=== PATIENT | female | born 1975 | race Caucasian/White ===

== ENCOUNTER 2021-05-12 06:20 | Inpatient (IN) ==
[2021-05-12] MEDS ORDERED: BUDESONIDE 0.5 MG/2 ML NEB RESP TX STA (07:01)
[2021-05-12] MEDS ORDERED: ALBUTEROL 2.5 MG/3 ML NEB RESP TX STA (07:01)
[2021-05-12 07:57] LABS: ABG HCO3 26.9 MMOL/L (20-26); ABG Oxygen Saturation 89.1 % (95-100); ABG PCO2 35.8 MM HG (35-48); ABG PH 7.475 (7.35-7.45); ABG PO2 54.8 MM HG (80-95); ABG TCO2 23.1 MMOL/L (23-27)
[2021-05-12 08:11] LABS: Albumin 2.8 G/DL (3.4-5.0); Bilirubin,Total 0.5 MG/DL (0.20-1.00); Osmolality,Calculated 274.4 MOS/KG (273-304); Potassium 3.6 MMOL/L (3.5-5.1); Total Protein 6.8 G/DL (6.4-8.2)
[2021-05-12 08:19] LABS: Hemoglobin 12.4 GM/DL (12.0-16.0); Immature Granulocytes % 0.7 %; Immature Granulocytes Absolute 0.02 #; Lymphocytes # 0.6 10*3/uL (1.4-4.0); Lymphocytes % 20.3 % (21.3-54.2); Mean Corpuscular HGB Conc 33.5 GM/DL (32-36); Mean Corpuscular Volume 81.1 FL (87-102); Mean Platelet Volume 10.6 FL (9.6-12.0); Monocytes % 5.8 % (1.7-12.7); Neutrophils % 73.2 % (38.7-73.9); Platelet Count 115 T/CUMM (130-400); Red Blood Count 4.56 MC/CUMM (3.8-5.5); Red Cell Distribution Width 13.7 % (9.3-17.3); White Blood Count 2.9 T/CUMM (4-12)
[2021-05-12 08:48] LABS: Anisocytosis Slight; Band Neutrophils 24 % (0-10); Lymphocytes 21 % (20-55); Platelet Estimate Adequate; Segmented Neutrophils 49 % (50-85); Total Cells Counted 100
[2021-05-12] MEDS ORDERED: DEXTROSE 50% 25 GM/50 ML VIAL IV PRN (10:39)
[2021-05-12] MEDS ORDERED: GLUCAGON 1 MG VIAL IM PRN ×2 (10:39)
[2021-05-12] MEDS ORDERED: ONDANSETRON 4 MG/2 ML VIAL IV PRN (10:39)
[2021-05-12] MEDS ORDERED: AZITHROMYCIN INJ 500 MG in SODIUM CHLORIDE 0.9% 250 ML IV ONE (10:50)
[2021-05-12] MEDS: ENOXAPARIN 40 MG/0.4 ML SYRINGE SUBCUT SCH (12:10)
[2021-05-12] MEDS: SODIUM CHLORIDE 0.9% 1,000 ML IV SCH ×2 (12:11→22:11)
[2021-05-12 12:33] LABS: Ferritin 658.4 ng/mL (8-252)
[2021-05-12] MEDS ORDERED: REMDESIVIR 200 MG in SODIUM CHLORIDE 0.9% 210 ML IV ONE (14:00)
[2021-05-12] MEDS: INSULIN REGULAR 100 UNIT/ML SUBCUT SCH ×3 (15:21→21:10)
[2021-05-12] MEDS: ASCORBIC ACID 500 MG TABLET PO SCH (21:00)
[2021-05-12] MEDS: FAMOTIDINE 20 MG TABLET PO SCH (21:00)
[2021-05-12] MEDS: guaiFENesin/CODEINE 5 ML LIQUID PO PRN (23:05)
[2021-05-13 05:22] LABS: Basophils % 0.3 % (0.0-0.8); Hematocrit 35.7 VOL% (35.7-47.0); Hemoglobin 11.8 GM/DL (12.0-16.0); Immature Granulocytes % 0.7 %; Immature Granulocytes Absolute 0.02 #; Lymphocytes # 0.8 10*3/uL (1.4-4.0); Mean Corpuscular HGB Conc 33.1 GM/DL (32-36); Mean Corpuscular Volume 82.8 FL (87-102); Mean Platelet Volume 9.4 FL (9.6-12.0); Monocytes % 5.9 % (1.7-12.7); Neutrophils % 66.1 % (38.7-73.9); Platelet Count 116 T/CUMM (130-400); Red Blood Count 4.31 MC/CUMM (3.8-5.5); Red Cell Distribution Width 13.8 % (9.3-17.3); White Blood Count 3.1 T/CUMM (4-12)
[2021-05-13 05:32] LABS: INR 0.9; PT Patient Result 10.3 SECS (10.5-12.0)
[2021-05-13 05:42] LABS: Hypochromasia Slight; Microcytosis Slight
[2021-05-13 05:52] LABS: Ferritin 585.1 ng/mL (8-252)
[2021-05-13 06:07] LABS: Albumin 2.3 G/DL (3.4-5.0); Bilirubin,Total 1.2 MG/DL (0.20-1.00); Calcium 7.4 MG/DL (8.5-10.1); Osmolality,Calculated 280.5 MOS/KG (273-304); Potassium 3.3 MMOL/L (3.5-5.1); Risk Ratio 2.56; Thyroid Stimulating Hormone 2.57 uIU/ml (0.358-3.74); Total Protein 5.9 G/DL (6.4-8.2); VLDL Cholesterol 18.8 MG/DL
[2021-05-13] MEDS ORDERED: POTASSIUM CHLORIDE 20 MEQ TABLET PO ONE (07:53)
[2021-05-13] MEDS ORDERED: PANTOPRAZOLE 40 MG TABLET PO SCH (09:00)
[2021-05-13] MEDS: REMDESIVIR 100 MG in SODIUM CHLORIDE 0.9% 100 ML IV SCH (09:08)
[2021-05-13] MEDS: DEXAMETHASONE 4 MG/1 ML VIAL IV SCH (09:13)
[2021-05-13] MEDS: CETIRIZINE 10 MG TABLET PO SCH (09:14)
[2021-05-13] MEDS: CHOLECALCIFEROL 1,000 UNIT TABLET PO SCH (09:14)
[2021-05-13] MEDS: ZINC GLUCONATE 50 MG TABLET PO SCH (09:14)
[2021-05-13] MEDS: ASCORBIC ACID 500 MG TABLET PO SCH ×2 (09:14→20:43)
[2021-05-13] MEDS: FAMOTIDINE 20 MG TABLET PO SCH ×2 (09:14→20:42)
[2021-05-13] MEDS: AZITHROMYCIN 250 MG TABLET PO SCH (09:14)
[2021-05-13] MEDS: INSULIN REGULAR 100 UNIT/ML SUBCUT SCH ×4 (09:22→20:43)
[2021-05-13] MEDS: ENOXAPARIN 40 MG/0.4 ML SYRINGE SUBCUT SCH (14:41)
[2021-05-13] MEDS: SODIUM CHLORIDE 0.9% 1,000 ML IV SCH ×2 (14:44→18:10)
[2021-05-13] MEDS: guaiFENesin/CODEINE 5 ML LIQUID PO PRN (20:43)
[2021-05-13] MEDS: ALBUTEROL INHALER 18 GM INH SCH (23:00)
[2021-05-14] MEDS: ALBUTEROL INHALER 18 GM INH SCH ×8 (03:00→23:00)
[2021-05-14] MEDS: guaiFENesin/CODEINE 5 ML LIQUID PO PRN (03:16)
[2021-05-14] MEDS: SODIUM CHLORIDE 0.9% 1,000 ML IV SCH ×2 (05:51→14:28)
[2021-05-14 07:44] LABS: Calcium 7.9 MG/DL (8.5-10.1); Osmolality,Calculated 285.3 MOS/KG (273-304)
[2021-05-14] MEDS: INSULIN REGULAR 100 UNIT/ML SUBCUT SCH ×4 (08:37→21:18)
[2021-05-14] MEDS: DEXAMETHASONE 4 MG/1 ML VIAL IV SCH (08:37)
[2021-05-14] MEDS: ASCORBIC ACID 500 MG TABLET PO SCH ×2 (08:38→21:18)
[2021-05-14] MEDS: ZINC GLUCONATE 50 MG TABLET PO SCH (08:38)
[2021-05-14] MEDS: CHOLECALCIFEROL 1,000 UNIT TABLET PO SCH (08:38)
[2021-05-14] MEDS: AZITHROMYCIN 250 MG TABLET PO SCH (08:38)
[2021-05-14] MEDS: CETIRIZINE 10 MG TABLET PO SCH (08:38)
[2021-05-14] MEDS: FAMOTIDINE 20 MG TABLET PO SCH ×2 (08:38→21:18)
[2021-05-14 09:48] LABS: Hematocrit 35.2 VOL% (35.7-47.0); Hemoglobin 11.4 GM/DL (12.0-16.0); Immature Granulocytes % 0.6 %; Immature Granulocytes Absolute 0.03 #; Lymphocytes # 0.6 10*3/uL (1.4-4.0); Lymphocytes % 12.7 % (21.3-54.2); Mean Corpuscular HGB Conc 32.4 GM/DL (32-36); Mean Corpuscular Volume 82.8 FL (87-102); Mean Platelet Volume 9.7 FL (9.6-12.0); Monocytes % 6.3 % (1.7-12.7); Neutrophils % 80.4 % (38.7-73.9); Platelet Count 141 T/CUMM (130-400); Red Blood Count 4.25 MC/CUMM (3.8-5.5); Red Cell Distribution Width 13.9 % (9.3-17.3)
[2021-05-14 10:12] LABS: Albumin 2.3 G/DL (3.4-5.0); Bilirubin,Total 0.4 MG/DL (0.20-1.00); Calcium 7.9 MG/DL (8.5-10.1); Osmolality,Calculated 290.1 MOS/KG (273-304); Potassium 3.7 MMOL/L (3.5-5.1); Total Protein 5.9 G/DL (6.4-8.2)
[2021-05-14] MEDS: REMDESIVIR 100 MG in SODIUM CHLORIDE 0.9% 100 ML IV SCH (10:29)
[2021-05-14] MEDS ORDERED: LORazepam 2 MG/1 ML VIAL IV ONE (15:14)
[2021-05-14] MEDS ORDERED: LORazepam 2 MG/1 ML VIAL ONE (15:24)
[2021-05-14] MEDS: APIXABAN 5 MG TABLET PO SCH (21:18)
[2021-05-14] MEDS: MELATONIN 3 MG TABLET PO PRN (21:18)
[2021-05-15] MEDS: guaiFENesin/CODEINE 5 ML LIQUID PO PRN (00:48)
[2021-05-15] MEDS: SODIUM CHLORIDE 0.9% 1,000 ML IV SCH ×2 (01:28→12:32)
[2021-05-15] MEDS: ALBUTEROL INHALER 18 GM INH SCH ×7 (03:00→21:01)
[2021-05-15 06:16] LABS: Hematocrit 35.4 VOL% (35.7-47.0); Hemoglobin 11.4 GM/DL (12.0-16.0); Immature Granulocytes % 1.1 %; Immature Granulocytes Absolute 0.07 #; Lymphocytes # 0.5 10*3/uL (1.4-4.0); Lymphocytes % 7.8 % (21.3-54.2); Mean Corpuscular HGB Conc 32.2 GM/DL (32-36); Mean Corpuscular Volume 83.7 FL (87-102); Mean Platelet Volume 9.6 FL (9.6-12.0); Monocytes % 5.1 % (1.7-12.7); Platelet Count 156 T/CUMM (130-400); Red Blood Count 4.23 MC/CUMM (3.8-5.5); Red Cell Distribution Width 13.9 % (9.3-17.3); White Blood Count 6.6 T/CUMM (4-12)
[2021-05-15 06:31] LABS: Albumin 2.2 G/DL (3.4-5.0); Bilirubin,Total 0.6 MG/DL (0.20-1.00); Osmolality,Calculated 287.1 MOS/KG (273-304); Potassium 3.5 MMOL/L (3.5-5.1); Total Protein 5.9 G/DL (6.4-8.2)
[2021-05-15 06:36] LABS: Potassium 3.7 MMOL/L (3.5-5.1)
[2021-05-15 06:44] LABS: Anisocytosis 2+; Platelet Estimate Normal
[2021-05-15] MEDS ORDERED: LORazepam 2 MG/1 ML VIAL IM PRN (07:40)
[2021-05-15] MEDS ORDERED: LORazepam 2 MG/1 ML VIAL ONE (08:00)
[2021-05-15] MEDS: DEXAMETHASONE 4 MG/1 ML VIAL IV SCH (08:08)
[2021-05-15] MEDS: CHOLECALCIFEROL 1,000 UNIT TABLET PO SCH (08:10)
[2021-05-15] MEDS: ACETAMINOPHEN 325 MG TABLET PO PRN (08:10)
[2021-05-15] MEDS: ZINC GLUCONATE 50 MG TABLET PO SCH (08:10)
[2021-05-15] MEDS: AZITHROMYCIN 250 MG TABLET PO SCH (08:11)
[2021-05-15] MEDS: ASCORBIC ACID 500 MG TABLET PO SCH ×2 (08:11→20:35)
[2021-05-15] MEDS: FAMOTIDINE 20 MG TABLET PO SCH ×2 (08:12→20:34)
[2021-05-15] MEDS: INSULIN REGULAR 100 UNIT/ML SUBCUT SCH ×4 (08:12→20:34)
[2021-05-15] MEDS: APIXABAN 5 MG TABLET PO SCH (08:12)
[2021-05-15] MEDS ORDERED: ALPRAZolam 0.5 MG TABLET PO PRN (10:11)
[2021-05-15] MEDS ORDERED: ALPRAZolam 0.5 MG TABLET PO ONE (10:11)
[2021-05-15] MEDS: REMDESIVIR 100 MG in SODIUM CHLORIDE 0.9% 100 ML IV SCH (10:34)
[2021-05-15] MEDS: CETIRIZINE 10 MG TABLET PO SCH (10:34)
[2021-05-15 10:38] LABS: ABG Base Excess -1.4 MMOL/L (-2.5-2.5); ABG HCO3 24.4 MMOL/L (20-26); ABG Oxygen Saturation 90.7 % (95-100); ABG PH 7.352 (7.35-7.45); ABG PO2 63.2 MM HG (80-95); ABG TCO2 25.8 MMOL/L (23-27)
[2021-05-15] MEDS ORDERED: DEXAMETHASONE 4 MG/1 ML VIAL IV ONE (11:00)
[2021-05-15] MEDS ORDERED: MORPHINE 2 MG/1 ML SYRINGE IV ONE ×2 (13:36→15:22)
[2021-05-15] MEDS ORDERED: FUROSEMIDE 40 MG/4 ML VIAL IV ONE (13:58)
[2021-05-15] MEDS: cefTRIAXone 1,000 MG in SODIUM CHLORIDE 0.9% 100 ML IV SCH (14:20)
[2021-05-15 14:23] LABS: ABG Base Excess -1.9 MMOL/L (-2.5-2.5); ABG HCO3 22.1 MMOL/L (20-26); ABG Oxygen Saturation 64.7 % (95-100); ABG PCO2 58.9 MM HG (35-48); ABG PH 7.263 (7.35-7.45); ABG TCO2 23.9 MMOL/L (23-27)
[2021-05-15] MEDS ORDERED: ETOMIDATE 20 MG/10 ML VIAL IV ONE ×2 (14:24→14:30)
[2021-05-15] MEDS ORDERED: SUCCINYLCHOLINE 200 MG/10 ML VIAL ONE (14:25)
[2021-05-15] MEDS ORDERED: SUCCINYLCHOLINE 200 MG/10 ML VIAL IV ONE (14:30)
[2021-05-15] MEDS ORDERED: fentaNYL INJ 1,250 MCG in SODIUM CHLORIDE 0.9% 225 ML IV PRN (14:59)
[2021-05-15] MEDS ORDERED: ROCURONIUM 100 MG/10 ML VIAL IV ONE (15:15)
[2021-05-15] MEDS ORDERED: LORazepam 2 MG/1 ML VIAL IV ONE (15:22)
[2021-05-15 15:41] LABS: ABG Base Excess -1.6 MMOL/L (-2.5-2.5); ABG HCO3 22.7 MMOL/L (20-26); ABG Oxygen Saturation 79.2 % (95-100); ABG PCO2 60.7 MM HG (35-48); ABG PH 7.255 (7.35-7.45); ABG PO2 52.6 MM HG (80-95); ABG TCO2 24.5 MMOL/L (23-27)
[2021-05-15] MEDS: ENOXAPARIN 150 MG/ML SYRINGE SUBCUT SCH (15:46)
[2021-05-15 15:52] LABS: Hematocrit 36.5 VOL% (35.7-47.0); Hemoglobin 11.5 GM/DL (12.0-16.0); Immature Granulocytes % 0.9 %; Immature Granulocytes Absolute 0.09 #; Lymphocytes # 0.3 10*3/uL (1.4-4.0); Lymphocytes % 3.2 % (21.3-54.2); Mean Corpuscular HGB Conc 31.5 GM/DL (32-36); Mean Corpuscular Volume 86.1 FL (87-102); Mean Platelet Volume 10.5 FL (9.6-12.0); Monocytes % 3.1 % (1.7-12.7); Neutrophils % 92.8 % (38.7-73.9); Platelet Count 150 T/CUMM (130-400); Red Blood Count 4.24 MC/CUMM (3.8-5.5); Red Cell Distribution Width 14.3 % (9.3-17.3); White Blood Count 9.9 T/CUMM (4-12)
[2021-05-15 16:13] LABS: Albumin 2.2 G/DL (3.4-5.0); Bilirubin,Total 0.6 MG/DL (0.20-1.00); Calcium 7.6 MG/DL (8.5-10.1); Osmolality,Calculated 295.8 MOS/KG (273-304); Potassium 4.4 MMOL/L (3.5-5.1); Total Protein 5.6 G/DL (6.4-8.2)
[2021-05-15] MEDS ORDERED: SODIUM CHLORIDE 0.9% 500 ML IV ONE ×2 (16:27→22:31)
[2021-05-15 16:31] LABS: Ferritin 340.1 ng/mL (8-252)
[2021-05-15 16:45] LABS: Hypochromasia 1+; Microcytosis 1+; Segmented Neutrophils 100 % (50-85); Total Cells Counted 100
[2021-05-15 16:46] LABS: Platelet Estimate Adequate
[2021-05-15] MEDS: NOREPINEPHRINE 8 MG in SODIUM CHLORIDE 0.9% 242 ML IV PRN (18:00)
[2021-05-15] MEDS: fentaNYL INJ 5,000 MCG in SODIUM CHLORIDE 0.9% 150 ML IV PRN (18:07)
[2021-05-15] MEDS: ROCURONIUM 1,000 MG in SODIUM CHLORIDE 0.9% 175 ML IV PRN (18:07)
[2021-05-15] MEDS ORDERED: SODIUM CHLORIDE 0.9% 500 ML IV SCH (23:45)
[2021-05-16] MEDS: ALBUTEROL INHALER 18 GM INH SCH ×9 (00:03→22:05)
[2021-05-16] MEDS: INSULIN REGULAR 100 UNIT/ML SUBCUT SCH ×6 (00:38→20:18)
[2021-05-16] MEDS: MIDAZOLAM 100 MG in SODIUM CHLORIDE 0.9% 80 ML IV PRN (02:24)
[2021-05-16 04:20] LABS: Basophils % 0.2 % (0.0-0.8); Hematocrit 32.8 VOL% (35.7-47.0); Hemoglobin 10.3 GM/DL (12.0-16.0); Immature Granulocytes % 0.6 %; Immature Granulocytes Absolute 0.03 #; Lymphocytes # 0.5 10*3/uL (1.4-4.0); Lymphocytes % 10.5 % (21.3-54.2); Mean Corpuscular HGB Conc 31.4 GM/DL (32-36); Mean Corpuscular Volume 85.2 FL (87-102); Mean Platelet Volume 10.5 FL (9.6-12.0); Monocytes % 5.7 % (1.7-12.7); Platelet Count 153 T/CUMM (130-400); Red Blood Count 3.85 MC/CUMM (3.8-5.5); Red Cell Distribution Width 14.5 % (9.3-17.3); White Blood Count 5.1 T/CUMM (4-12)
[2021-05-16 04:24] LABS: ABG HCO3 23.8 MMOL/L (20-26); ABG Oxygen Saturation 98.5 % (95-100); ABG PH 7.342 (7.35-7.45); ABG PO2 179.7 MM HG (80-95); ABG TCO2 25.2 MMOL/L (23-27); Allen Test Positive; Pt O2 Delivery Device Ventilator
[2021-05-16 05:02] LABS: Albumin 1.9 G/DL (3.4-5.0); Bilirubin,Total 0.4 MG/DL (0.20-1.00); Calcium 7.6 MG/DL (8.5-10.1); Osmolality,Calculated 299.8 MOS/KG (273-304); Potassium 4.5 MMOL/L (3.5-5.1); Total Protein 5.7 G/DL (6.4-8.2)
[2021-05-16 05:33] LABS: Ferritin 392.9 ng/mL (8-252)
[2021-05-16] MEDS: fentaNYL INJ 5,000 MCG in SODIUM CHLORIDE 0.9% 150 ML IV PRN ×2 (07:01→18:52)
[2021-05-16] MEDS: ROCURONIUM 1,000 MG in SODIUM CHLORIDE 0.9% 175 ML IV PRN ×2 (07:03→18:52)
[2021-05-16] MEDS: CHOLECALCIFEROL 1,000 UNIT TABLET PO SCH (08:03)
[2021-05-16] MEDS: ZINC GLUCONATE 50 MG TABLET PO SCH (08:04)
[2021-05-16] MEDS: ASCORBIC ACID 500 MG TABLET PO SCH ×2 (08:04→20:19)
[2021-05-16] MEDS: FAMOTIDINE 20 MG TABLET PO SCH ×2 (08:04→20:18)
[2021-05-16] MEDS: AZITHROMYCIN 250 MG TABLET PO SCH (08:05)
[2021-05-16] MEDS: CETIRIZINE 10 MG TABLET PO SCH (08:05)
[2021-05-16] MEDS ORDERED: DEXAMETHASONE INJ 10 MG in SODIUM CHLORIDE 0.9% 50 ML IV SCH (09:00)
[2021-05-16] MEDS: REMDESIVIR 100 MG in SODIUM CHLORIDE 0.9% 100 ML IV SCH (09:43)
[2021-05-16] MEDS ORDERED: FUROSEMIDE 20 MG/2 ML VIAL IV ONE (09:55)
[2021-05-16] MEDS ORDERED: methylPREDNISolone SOD SUC 40 MG/1 ML VIAL IV SCH (10:00)
[2021-05-16 10:19] LABS: % Iron Saturation 10.9 % (18-50)
[2021-05-16] MEDS: INSULIN GLARGINE 100 UNIT/ML SUBCUT SCH ×2 (11:14→20:18)
[2021-05-16] MEDS: cefTRIAXone 1,000 MG in SODIUM CHLORIDE 0.9% 100 ML IV SCH (14:55)
[2021-05-16] MEDS: ENOXAPARIN 150 MG/ML SYRINGE SUBCUT SCH (15:01)
[2021-05-16] MEDS: ACETAMINOPHEN 325 MG TABLET PO PRN (17:28)
[2021-05-16] MEDS: methylPREDNISolone SOD SUC 40 MG/1 ML VIAL IV SCH ×2 (17:30→21:55)
[2021-05-16] MEDS: ALBUTEROL/IPRATROPIUM 3 ML NEB RESP TX SCH (17:32)
[2021-05-16] MEDS: NOREPINEPHRINE 8 MG in SODIUM CHLORIDE 0.9% 242 ML IV PRN (18:51)
[2021-05-16] MEDS: MONTELUKAST 10 MG TABLET PO SCH (20:18)
[2021-05-17] MEDS: INSULIN REGULAR 100 UNIT/ML SUBCUT SCH ×6 (00:15→20:58)
[2021-05-17] MEDS: ACETAMINOPHEN 325 MG TABLET PO PRN ×3 (00:30→18:19)
[2021-05-17 03:14] LABS: ABG Base Excess 1.4 MMOL/L (-2.5-2.5); ABG PCO2 53.5 MM HG (35-48); ABG PH 7.336 (7.35-7.45); ABG TCO2 29.6 MMOL/L (23-27)
[2021-05-17] MEDS: MIDAZOLAM 100 MG in SODIUM CHLORIDE 0.9% 80 ML IV PRN (03:14)
[2021-05-17] MEDS: methylPREDNISolone SOD SUC 40 MG/1 ML VIAL IV SCH ×4 (04:15→22:01)
[2021-05-17] MEDS: ALBUTEROL INHALER 18 GM INH SCH ×6 (04:17→23:45)
[2021-05-17] MEDS: fentaNYL INJ 5,000 MCG in SODIUM CHLORIDE 0.9% 150 ML IV PRN (05:45)
[2021-05-17 05:57] LABS: Basophils % 0.2 % (0.0-0.8); Hematocrit 34.3 VOL% (35.7-47.0); Hemoglobin 10.8 GM/DL (12.0-16.0); Immature Granulocytes % 0.8 %; Immature Granulocytes Absolute 0.05 #; Lymphocytes # 0.6 10*3/uL (1.4-4.0); Lymphocytes % 9.2 % (21.3-54.2); Mean Corpuscular HGB Conc 31.5 GM/DL (32-36); Mean Corpuscular Volume 87.5 FL (87-102); Mean Platelet Volume 10.6 FL (9.6-12.0); Monocytes % 4.7 % (1.7-12.7); Neutrophils % 85.1 % (38.7-73.9); Platelet Count 213 T/CUMM (130-400); Red Blood Count 3.92 MC/CUMM (3.8-5.5); Red Cell Distribution Width 14.5 % (9.3-17.3)
[2021-05-17 06:33] LABS: Albumin 1.9 G/DL (3.4-5.0); Bilirubin,Total 0.9 MG/DL (0.20-1.00); Calcium 8.3 MG/DL (8.5-10.1); Osmolality,Calculated 304.7 MOS/KG (273-304); Potassium 4.8 MMOL/L (3.5-5.1); Total Protein 5.8 G/DL (6.4-8.2)
[2021-05-17 06:38] LABS: Albumin 1.9 G/DL (3.4-5.0); Bilirubin,Direct 0.37 MG/DL (0.0-0.20); Bilirubin,Indirect 0.5 MG/DL (0.0-1.0); Bilirubin,Total 0.9 MG/DL (0.20-1.00); Calcium 8.3 MG/DL (8.5-10.1); Ferritin 424.4 ng/mL (8-252); Free T4 (Free Thyroxine) 1.11 NG/DL (0.76-1.46); Osmolality,Calculated 306.7 MOS/KG (273-304); Potassium 4.7 MMOL/L (3.5-5.1); Thyroid Stimulating Hormone 0.688 uIU/ml (0.358-3.74); Total Protein 5.8 G/DL (6.4-8.2)
[2021-05-17] MEDS: ROCURONIUM 1,000 MG in SODIUM CHLORIDE 0.9% 175 ML IV PRN ×2 (07:15→19:05)
[2021-05-17 08:31] LABS: Anisocytosis 1+; Platelet Estimate Normal
[2021-05-17] MEDS: CHOLECALCIFEROL 1,000 UNIT TABLET PO SCH (09:39)
[2021-05-17] MEDS: FAMOTIDINE 20 MG TABLET PO SCH ×2 (09:40→20:58)
[2021-05-17] MEDS: ZINC GLUCONATE 50 MG TABLET PO SCH (09:40)
[2021-05-17] MEDS: ASCORBIC ACID 500 MG TABLET PO SCH ×2 (09:40→20:58)
[2021-05-17] MEDS: INSULIN GLARGINE 100 UNIT/ML SUBCUT SCH ×2 (09:42→20:59)
[2021-05-17] MEDS ORDERED: INSULIN GLARGINE 100 UNIT/ML SUBCUT ONE (10:51)
[2021-05-17] MEDS: AZITHROMYCIN INJ 500 MG in SODIUM CHLORIDE 0.9% 250 ML IV SCH (11:47)
[2021-05-17 14:28] LABS: Bacteria,Urine Moderate /HPF (Few); Bilirubin,Urine Negative (Negative); Blood, Urine Negative (Negative); Glucose,Urine (UA) 150 mg/dL (Negative); Ketones,Urine 20 mg/dL (Negative); Mucus,Urine Few /LPF (Occasional); Nitrite,Urine Negative (Negative); Protein,Urine 100 MG/DL; RBC,Urine 195 /HPF (0-4); Squamous Epithelial Cell,Urine Occasional /HPF (0-10); Urine Appearance CLOUDY (Clear); Urine Color Amber (Yellow); Urine Specific Gravity 1.028 (1.001-1.035)
[2021-05-17] MEDS: cefTRIAXone 1,000 MG in SODIUM CHLORIDE 0.9% 100 ML IV SCH (14:43)
[2021-05-17] MEDS: ENOXAPARIN 150 MG/ML SYRINGE SUBCUT SCH (14:43)
[2021-05-17] MEDS: VANCOMYCIN INJ 2,000 MG in SODIUM CHLORIDE 0.9% 500 ML IV SCH (16:16)
[2021-05-17] MEDS: MONTELUKAST 10 MG TABLET PO SCH (20:58)
[2021-05-18] MEDS: INSULIN REGULAR 100 UNIT/ML SUBCUT SCH ×6 (00:33→20:48)
[2021-05-18] MEDS: MIDAZOLAM 100 MG in SODIUM CHLORIDE 0.9% 80 ML IV PRN ×2 (01:05→23:31)
[2021-05-18] MEDS: fentaNYL INJ 5,000 MCG in SODIUM CHLORIDE 0.9% 150 ML IV PRN ×2 (02:50→13:00)
[2021-05-18] MEDS: ALBUTEROL INHALER 18 GM INH SCH ×5 (03:15→19:00)
[2021-05-18 04:09] LABS: ABG Base Excess 3.6 MMOL/L (-2.5-2.5); ABG HCO3 27.5 MMOL/L (20-26); ABG Oxygen Saturation 92.2 % (95-100); ABG PCO2 51.6 MM HG (35-48); ABG PH 7.372 (7.35-7.45); ABG TCO2 26.9 MMOL/L (23-27)
[2021-05-18] MEDS: methylPREDNISolone SOD SUC 40 MG/1 ML VIAL IV SCH ×3 (04:25→20:48)
[2021-05-18] MEDS: VANCOMYCIN INJ 2,000 MG in SODIUM CHLORIDE 0.9% 500 ML IV SCH ×2 (04:26→17:00)
[2021-05-18] MEDS: ACETAMINOPHEN 325 MG TABLET PO PRN ×2 (04:40→20:37)
[2021-05-18 05:01] LABS: Hemoglobin 10.5 GM/DL (12.0-16.0); Immature Granulocytes % 0.9 %; Immature Granulocytes Absolute 0.05 #; Lymphocytes # 0.4 10*3/uL (1.4-4.0); Lymphocytes % 7.3 % (21.3-54.2); Mean Corpuscular HGB Conc 30.9 GM/DL (32-36); Mean Corpuscular Volume 87.2 FL (87-102); Mean Platelet Volume 10.4 FL (9.6-12.0); Neutrophils % 83.8 % (38.7-73.9); Platelet Count 235 T/CUMM (130-400); Red Cell Distribution Width 14.3 % (9.3-17.3); White Blood Count 5.4 T/CUMM (4-12)
[2021-05-18 05:23] LABS: Hypochromasia 1+; Microcytosis 1+; Platelet Estimate Adequate
[2021-05-18 05:40] LABS: Albumin 1.9 G/DL (3.4-5.0); Bilirubin,Direct 0.42 MG/DL (0.0-0.20); Bilirubin,Indirect 0.3 MG/DL (0.0-1.0); Bilirubin,Total 0.7 MG/DL (0.20-1.00); Calcium 8.2 MG/DL (8.5-10.1); Ferritin 378.8 ng/mL (8-252); Osmolality,Calculated 311.4 MOS/KG (273-304); Potassium 4.9 MMOL/L (3.5-5.1); Total Protein 5.7 G/DL (6.4-8.2)
[2021-05-18] MEDS: ROCURONIUM 1,000 MG in SODIUM CHLORIDE 0.9% 175 ML IV PRN ×2 (07:10→19:12)
[2021-05-18] MEDS: FAMOTIDINE 20 MG TABLET PO SCH ×2 (08:42→20:36)
[2021-05-18] MEDS: ASCORBIC ACID 500 MG TABLET PO SCH ×2 (08:42→20:36)
[2021-05-18] MEDS: CHOLECALCIFEROL 1,000 UNIT TABLET PO SCH (08:42)
[2021-05-18] MEDS: ZINC GLUCONATE 50 MG TABLET PO SCH (08:42)
[2021-05-18] MEDS: INSULIN GLARGINE 100 UNIT/ML SUBCUT SCH ×2 (08:43→20:47)
[2021-05-18] MEDS: AZITHROMYCIN INJ 500 MG in SODIUM CHLORIDE 0.9% 250 ML IV SCH (11:00)
[2021-05-18] MEDS: cefTRIAXone 1,000 MG in SODIUM CHLORIDE 0.9% 100 ML IV SCH (15:00)
[2021-05-18] MEDS: ENOXAPARIN 150 MG/ML SYRINGE SUBCUT SCH (15:00)
[2021-05-18] MEDS: MONTELUKAST 10 MG TABLET PO SCH (20:36)
[2021-05-19] MEDS: fentaNYL INJ 5,000 MCG in SODIUM CHLORIDE 0.9% 150 ML IV PRN ×3 (00:16→21:40)
[2021-05-19] MEDS: INSULIN REGULAR 100 UNIT/ML SUBCUT SCH ×6 (00:32→21:42)
[2021-05-19] MEDS: ACETAMINOPHEN 325 MG TABLET PO PRN ×2 (00:32→22:00)
[2021-05-19] MEDS: ALBUTEROL INHALER 18 GM INH SCH ×7 (04:00→22:35)
[2021-05-19 04:07] LABS: ABG Base Excess 3.5 MMOL/L (-2.5-2.5); ABG HCO3 27.5 MMOL/L (20-26); ABG Oxygen Saturation 93.7 % (95-100); ABG PCO2 46.8 MM HG (35-48); ABG PO2 71.5 MM HG (80-95); ABG TCO2 26.1 MMOL/L (23-27)
[2021-05-19 04:21] LABS: Hematocrit 34.2 VOL% (35.7-47.0); Hemoglobin 10.7 GM/DL (12.0-16.0); Immature Granulocytes % 1.4 %; Immature Granulocytes Absolute 0.06 #; Lymphocytes # 0.3 10*3/uL (1.4-4.0); Lymphocytes % 7.8 % (21.3-54.2); Mean Corpuscular HGB Conc 31.3 GM/DL (32-36); Mean Corpuscular Volume 87.5 FL (87-102); Mean Platelet Volume 10.6 FL (9.6-12.0); Monocytes % 9.4 % (1.7-12.7); Neutrophils % 81.4 % (38.7-73.9); Platelet Count 219 T/CUMM (130-400); Red Blood Count 3.91 MC/CUMM (3.8-5.5); Red Cell Distribution Width 13.8 % (9.3-17.3); White Blood Count 4.2 T/CUMM (4-12)
[2021-05-19 04:48] LABS: Calcium 7.8 MG/DL (8.5-10.1); Osmolality,Calculated 316.4 MOS/KG (273-304); Potassium 4.8 MMOL/L (3.5-5.1)
[2021-05-19] MEDS: VANCOMYCIN INJ 2,000 MG in SODIUM CHLORIDE 0.9% 500 ML IV SCH (05:00)
[2021-05-19] MEDS: ZINC GLUCONATE 50 MG TABLET PO SCH (09:25)
[2021-05-19] MEDS: CHOLECALCIFEROL 1,000 UNIT TABLET PO SCH (09:25)
[2021-05-19] MEDS: FAMOTIDINE 20 MG TABLET PO SCH ×2 (09:25→21:40)
[2021-05-19] MEDS: ASCORBIC ACID 500 MG TABLET PO SCH ×2 (09:25→21:40)
[2021-05-19] MEDS: methylPREDNISolone SOD SUC 40 MG/1 ML VIAL IV SCH ×2 (09:25→21:41)
[2021-05-19] MEDS: INSULIN GLARGINE 100 UNIT/ML SUBCUT SCH ×2 (09:26→21:42)
[2021-05-19] MEDS: ENOXAPARIN 80 MG/0.8 ML SYRINGE SUBCUT SCH (13:32)
[2021-05-19] MEDS: cefTRIAXone 1,000 MG in SODIUM CHLORIDE 0.9% 100 ML IV SCH (13:32)
[2021-05-19] MEDS: MONTELUKAST 10 MG TABLET PO SCH (21:40)
[2021-05-20] MEDS: ENOXAPARIN 80 MG/0.8 ML SYRINGE SUBCUT SCH ×2 (01:33→12:00)
[2021-05-20] MEDS: INSULIN REGULAR 100 UNIT/ML SUBCUT SCH ×3 (01:34→08:57)
[2021-05-20 03:51] LABS: Hematocrit 34.8 VOL% (35.7-47.0); Hemoglobin 10.9 GM/DL (12.0-16.0); Immature Granulocytes % 2.1 %; Lymphocytes # 0.3 10*3/uL (1.4-4.0); Lymphocytes % 5.5 % (21.3-54.2); Mean Corpuscular HGB Conc 31.3 GM/DL (32-36); Mean Corpuscular Volume 87.7 FL (87-102); Mean Platelet Volume 10.3 FL (9.6-12.0); Monocytes % 8.6 % (1.7-12.7); NRBC # 0.03 10*3/uL; Neutrophils % 83.8 % (38.7-73.9); Platelet Count 216 T/CUMM (130-400); Red Blood Count 3.97 MC/CUMM (3.8-5.5); Red Cell Distribution Width 13.6 % (9.3-17.3); White Blood Count 4.7 T/CUMM (4-12)
[2021-05-20] MEDS: ALBUTEROL INHALER 18 GM INH SCH ×6 (04:00→23:17)
[2021-05-20 04:12] LABS: Albumin 2.1 G/DL (3.4-5.0); Bilirubin,Total 0.9 MG/DL (0.20-1.00); Calcium 7.9 MG/DL (8.5-10.1); Osmolality,Calculated 317.1 MOS/KG (273-304); Total Protein 5.7 G/DL (6.4-8.2)
[2021-05-20] MEDS: ZINC GLUCONATE 50 MG TABLET PO SCH (08:55)
[2021-05-20] MEDS: methylPREDNISolone SOD SUC 40 MG/1 ML VIAL IV SCH ×3 (08:55→23:04)
[2021-05-20] MEDS: CHOLECALCIFEROL 1,000 UNIT TABLET PO SCH (08:55)
[2021-05-20] MEDS: INSULIN GLARGINE 100 UNIT/ML SUBCUT SCH ×2 (08:56→22:01)
[2021-05-20] MEDS: ASCORBIC ACID 500 MG TABLET PO SCH ×2 (08:56→22:00)
[2021-05-20] MEDS: FAMOTIDINE 20 MG TABLET PO SCH ×2 (08:56→22:00)
[2021-05-20] MEDS ORDERED: METOPROLOL TARTRATE 5 MG/5 ML VIAL IV ONE (09:30)
[2021-05-20] MEDS: fentaNYL INJ 5,000 MCG in SODIUM CHLORIDE 0.9% 150 ML IV PRN (10:00)
[2021-05-20] MEDS: MIDAZOLAM 100 MG in SODIUM CHLORIDE 0.9% 80 ML IV PRN (10:15)
[2021-05-20] MEDS ORDERED: DIGOXIN 0.25 MG TABLET PO ONE (10:33)
[2021-05-20] MEDS: METOPROLOL TARTRATE 50 MG TABLET PO SCH ×2 (11:50→22:00)
[2021-05-20 12:04] LABS: ABG Base Excess 2.7 MMOL/L (-2.5-2.5); ABG HCO3 26.7 MMOL/L (20-26); ABG Oxygen Saturation 92.1 % (95-100); ABG PCO2 47.5 MM HG (35-48); ABG PH 7.388 (7.35-7.45); ABG PO2 68.5 MM HG (80-95); ABG TCO2 24.7 MMOL/L (23-27)
[2021-05-20] MEDS: INSULIN LISPRO 100 UNIT/ML SUBCUT SCH ×5 (12:29→22:01)
[2021-05-20] MEDS: cefTRIAXone 1,000 MG in SODIUM CHLORIDE 0.9% 100 ML IV SCH (13:00)
[2021-05-20] MEDS ORDERED: FUROSEMIDE 40 MG/4 ML VIAL IV ONE (15:12)
[2021-05-20] MEDS: ROCURONIUM 1,000 MG in SODIUM CHLORIDE 0.9% 175 ML IV PRN (19:52)
[2021-05-20] MEDS: ACETAMINOPHEN 325 MG TABLET PO PRN (21:59)
[2021-05-20] MEDS: MONTELUKAST 10 MG TABLET PO SCH (22:00)
[2021-05-21] MEDS: INSULIN LISPRO 100 UNIT/ML SUBCUT SCH ×9 (00:03→21:29)
[2021-05-21] MEDS: ENOXAPARIN 80 MG/0.8 ML SYRINGE SUBCUT SCH ×2 (00:30→12:50)
[2021-05-21] MEDS: fentaNYL INJ 5,000 MCG in SODIUM CHLORIDE 0.9% 150 ML IV PRN ×2 (00:38→13:06)
[2021-05-21] MEDS: ALBUTEROL INHALER 18 GM INH SCH ×6 (03:00→23:00)
[2021-05-21 05:11] LABS: ABG Base Excess 5.6 MMOL/L (-2.5-2.5); ABG HCO3 29.3 MMOL/L (20-26); ABG Oxygen Saturation 92.5 % (95-100); ABG PH 7.425 (7.35-7.45); ABG PO2 65.8 MM HG (80-95); ABG TCO2 27.6 MMOL/L (23-27)
[2021-05-21 05:28] LABS: Hematocrit 35.8 VOL% (35.7-47.0); Immature Granulocytes % 1.5 %; Immature Granulocytes Absolute 0.14 #; Lymphocytes # 0.3 10*3/uL (1.4-4.0); Lymphocytes % 2.9 % (21.3-54.2); Mean Corpuscular HGB Conc 30.7 GM/DL (32-36); Mean Corpuscular Volume 87.5 FL (87-102); Mean Platelet Volume 11.1 FL (9.6-12.0); Monocytes % 4.5 % (1.7-12.7); Neutrophils % 91.1 % (38.7-73.9); Platelet Count 177 T/CUMM (130-400); Red Blood Count 4.09 MC/CUMM (3.8-5.5); Red Cell Distribution Width 13.6 % (9.3-17.3); White Blood Count 9.1 T/CUMM (4-12)
[2021-05-21 05:53] LABS: Bilirubin,Total 0.7 MG/DL (0.20-1.00); Calcium 8.2 MG/DL (8.5-10.1); Osmolality,Calculated 313.3 MOS/KG (273-304); Potassium 4.9 MMOL/L (3.5-5.1); Total Protein 5.7 G/DL (6.4-8.2)
[2021-05-21 05:55] LABS: Lymphocytes 1 % (20-55); Nucleated Red Blood Cells 1 (0-5); Platelet Estimate Adequate; Segmented Neutrophils 97 % (50-85); Total Cells Counted 100
[2021-05-21] MEDS: MIDAZOLAM 100 MG in SODIUM CHLORIDE 0.9% 80 ML IV PRN ×2 (06:12→18:24)
[2021-05-21] MEDS: methylPREDNISolone SOD SUC 40 MG/1 ML VIAL IV SCH ×2 (07:55→16:24)
[2021-05-21] MEDS: METOPROLOL TARTRATE 50 MG TABLET PO SCH ×2 (08:33→21:31)
[2021-05-21] MEDS: FAMOTIDINE 20 MG TABLET PO SCH ×2 (08:33→21:32)
[2021-05-21] MEDS: CHOLECALCIFEROL 1,000 UNIT TABLET PO SCH (08:34)
[2021-05-21] MEDS: ASCORBIC ACID 500 MG TABLET PO SCH ×2 (08:34→21:32)
[2021-05-21] MEDS: ZINC GLUCONATE 50 MG TABLET PO SCH (08:34)
[2021-05-21] MEDS: INSULIN GLARGINE 100 UNIT/ML SUBCUT SCH ×3 (08:35→21:34)
[2021-05-21] MEDS: DIGOXIN 0.125 MG TABLET PO SCH (12:50)
[2021-05-21] MEDS: cefTRIAXone 1,000 MG in SODIUM CHLORIDE 0.9% 100 ML IV SCH (15:38)
[2021-05-21] MEDS: FUROSEMIDE 40 MG/4 ML VIAL IV SCH (16:25)
[2021-05-21] MEDS: ACETAMINOPHEN 325 MG TABLET PO PRN (21:31)
[2021-05-21] MEDS: DOCUSATE SODIUM 100 MG CAPSULE PO PRN (21:32)
[2021-05-21] MEDS: MONTELUKAST 10 MG TABLET PO SCH (21:33)
[2021-05-21] MEDS: ROCURONIUM 1,000 MG in SODIUM CHLORIDE 0.9% 175 ML IV PRN (22:07)
[2021-05-22] MEDS: INSULIN LISPRO 100 UNIT/ML SUBCUT SCH ×9 (00:15→20:26)
[2021-05-22] MEDS: methylPREDNISolone SOD SUC 40 MG/1 ML VIAL IV SCH ×3 (00:16→19:17)
[2021-05-22] MEDS: ENOXAPARIN 80 MG/0.8 ML SYRINGE SUBCUT SCH ×2 (00:45→12:15)
[2021-05-22] MEDS: fentaNYL INJ 5,000 MCG in SODIUM CHLORIDE 0.9% 150 ML IV PRN ×2 (01:41→13:00)
[2021-05-22] MEDS: ALBUTEROL INHALER 18 GM INH SCH ×6 (03:00→22:50)
[2021-05-22 04:55] LABS: ABG Base Excess 5.5 MMOL/L (-2.5-2.5); ABG HCO3 29.4 MMOL/L (20-26); ABG Oxygen Saturation 98.1 % (95-100); ABG PCO2 47.1 MM HG (35-48); ABG PH 7.424 (7.35-7.45); ABG TCO2 27.6 MMOL/L (23-27)
[2021-05-22] MEDS: MIDAZOLAM 100 MG in SODIUM CHLORIDE 0.9% 80 ML IV PRN ×2 (05:30→15:30)
[2021-05-22 06:15] LABS: Calcium 8.6 MG/DL (8.5-10.1); Osmolality,Calculated 302.8 MOS/KG (273-304); Potassium 4.2 MMOL/L (3.5-5.1); Total Protein 5.4 G/DL (6.4-8.2)
[2021-05-22] MEDS: ZINC GLUCONATE 50 MG TABLET PO SCH (09:08)
[2021-05-22] MEDS: ASCORBIC ACID 500 MG TABLET PO SCH ×2 (09:08→21:53)
[2021-05-22] MEDS: FUROSEMIDE 40 MG/4 ML VIAL IV SCH ×2 (09:08→18:18)
[2021-05-22] MEDS: FAMOTIDINE 20 MG TABLET PO SCH ×2 (09:08→21:52)
[2021-05-22] MEDS: CHOLECALCIFEROL 1,000 UNIT TABLET PO SCH (09:08)
[2021-05-22] MEDS: METOPROLOL TARTRATE 50 MG TABLET PO SCH ×2 (09:09→21:53)
[2021-05-22] MEDS: POLYETHYLENE GLYCOL POWDER 17 GM PACK PO SCH (09:09)
[2021-05-22] MEDS: INSULIN GLARGINE 100 UNIT/ML SUBCUT SCH ×2 (09:10→20:22)
[2021-05-22] MEDS: DIGOXIN 0.125 MG TABLET PO SCH (13:15)
[2021-05-22] MEDS: cefTRIAXone 1,000 MG in SODIUM CHLORIDE 0.9% 100 ML IV SCH (13:16)
[2021-05-22] MEDS: MONTELUKAST 10 MG TABLET PO SCH (21:52)
[2021-05-22] MEDS: LACTULOSE 20 GM/30 ML UDCUP PO PRN (21:58)
[2021-05-22] MEDS: ROCURONIUM 1,000 MG in SODIUM CHLORIDE 0.9% 175 ML IV PRN (22:51)
[2021-05-23] MEDS: methylPREDNISolone SOD SUC 40 MG/1 ML VIAL IV SCH ×4 (01:00→23:33)
[2021-05-23] MEDS: INSULIN LISPRO 100 UNIT/ML SUBCUT SCH ×10 (01:00→23:34)
[2021-05-23] MEDS: fentaNYL INJ 5,000 MCG in SODIUM CHLORIDE 0.9% 150 ML IV PRN ×2 (01:50→16:45)
[2021-05-23] MEDS: ENOXAPARIN 80 MG/0.8 ML SYRINGE SUBCUT SCH ×3 (01:56→23:34)
[2021-05-23] MEDS: ALBUTEROL INHALER 18 GM INH SCH ×6 (02:45→23:33)
[2021-05-23] MEDS: MIDAZOLAM 100 MG in SODIUM CHLORIDE 0.9% 80 ML IV PRN ×2 (07:03→16:45)
[2021-05-23 07:27] LABS: Hematocrit 32.6 VOL% (35.7-47.0); Hemoglobin 10.5 GM/DL (12.0-16.0); Immature Granulocytes % 0.7 %; Immature Granulocytes Absolute 0.05 #; Lymphocytes # 0.3 10*3/uL (1.4-4.0); Lymphocytes % 3.7 % (21.3-54.2); Mean Corpuscular HGB Conc 32.2 GM/DL (32-36); Mean Platelet Volume 11.5 FL (9.6-12.0); Monocytes % 6.5 % (1.7-12.7); Neutrophils % 89.1 % (38.7-73.9); Platelet Count 130 T/CUMM (130-400); Red Blood Count 3.79 MC/CUMM (3.8-5.5); Red Cell Distribution Width 13.4 % (9.3-17.3); White Blood Count 6.7 T/CUMM (4-12)
[2021-05-23 07:46] LABS: Bilirubin,Total 0.8 MG/DL (0.20-1.00); Calcium 8.4 MG/DL (8.5-10.1); Potassium 4.5 MMOL/L (3.5-5.1); Total Protein 5.6 G/DL (6.4-8.2)
[2021-05-23 07:50] LABS: Hypochromasia 1+; Lymphocytes 4 % (20-55); Microcytosis 1+; Platelet Estimate Normal; Segmented Neutrophils 90 % (50-85); Total Cells Counted 100
[2021-05-23 07:54] LABS: Calcium 8.7 MG/DL (8.5-10.1); Osmolality,Calculated 295.4 MOS/KG (273-304); Potassium 4.5 MMOL/L (3.5-5.1)
[2021-05-23] MEDS: FUROSEMIDE 40 MG/4 ML VIAL IV SCH ×2 (08:08→16:57)
[2021-05-23] MEDS: POLYETHYLENE GLYCOL POWDER 17 GM PACK PO SCH (08:08)
[2021-05-23] MEDS: FAMOTIDINE 20 MG TABLET PO SCH ×2 (08:08→20:16)
[2021-05-23] MEDS: ZINC GLUCONATE 50 MG TABLET PO SCH (08:08)
[2021-05-23] MEDS: ASCORBIC ACID 500 MG TABLET PO SCH ×2 (08:08→20:16)
[2021-05-23] MEDS: CHOLECALCIFEROL 1,000 UNIT TABLET PO SCH (08:08)
[2021-05-23] MEDS: METOPROLOL TARTRATE 50 MG TABLET PO SCH ×2 (08:08→20:16)
[2021-05-23] MEDS: INSULIN GLARGINE 100 UNIT/ML SUBCUT SCH ×2 (08:09→20:14)
[2021-05-23] MEDS: DIGOXIN 0.125 MG TABLET PO SCH (13:16)
[2021-05-23] MEDS: cefTRIAXone 1,000 MG in SODIUM CHLORIDE 0.9% 100 ML IV SCH (16:56)
[2021-05-23] MEDS: MONTELUKAST 10 MG TABLET PO SCH (20:16)
[2021-05-24 03:44] LABS: ABG Base Excess 10.7 MMOL/L (-2.5-2.5); ABG HCO3 34.3 MMOL/L (20-26); ABG Oxygen Saturation 93.9 % (95-100); ABG PCO2 49.5 MM HG (35-48); ABG PH 7.472 (7.35-7.45); ABG PO2 73.1 MM HG (80-95); ABG TCO2 31.5 MMOL/L (23-27)
[2021-05-24] MEDS: ALBUTEROL INHALER 18 GM INH SCH ×7 (04:49→23:46)
[2021-05-24] MEDS: INSULIN LISPRO 100 UNIT/ML SUBCUT SCH ×9 (04:49→23:46)
[2021-05-24 05:23] LABS: Hematocrit 33.7 VOL% (35.7-47.0); Hemoglobin 10.9 GM/DL (12.0-16.0); Immature Granulocytes % 1.1 %; Immature Granulocytes Absolute 0.09 #; Lymphocytes # 0.2 10*3/uL (1.4-4.0); Lymphocytes % 2.7 % (21.3-54.2); Mean Corpuscular HGB Conc 32.3 GM/DL (32-36); Mean Platelet Volume 12.2 FL (9.6-12.0); Neutrophils % 90.2 % (38.7-73.9); Red Blood Count 3.92 MC/CUMM (3.8-5.5); Red Cell Distribution Width 13.5 % (9.3-17.3); White Blood Count 8.4 T/CUMM (4-12)
[2021-05-24 05:28] LABS: Platelet Count 96 T/CUMM (130-400)
[2021-05-24 05:40] LABS: Calcium 8.8 MG/DL (8.5-10.1); Osmolality,Calculated 299.3 MOS/KG (273-304); Potassium 4.5 MMOL/L (3.5-5.1)
[2021-05-24 05:50] LABS: Band Neutrophils 1 % (0-10); Hypochromasia Slight; Lymphocytes 4 % (20-55); Microcytosis Slight; Platelet Estimate Decreased; Segmented Neutrophils 90 % (50-85); Total Cells Counted 100
[2021-05-24] MEDS: MIDAZOLAM 100 MG in SODIUM CHLORIDE 0.9% 80 ML IV PRN ×3 (05:53→23:31)
[2021-05-24] MEDS: fentaNYL INJ 5,000 MCG in SODIUM CHLORIDE 0.9% 150 ML IV PRN ×2 (05:54→17:15)
[2021-05-24] MEDS: FAMOTIDINE 20 MG TABLET PO SCH ×2 (08:23→20:49)
[2021-05-24] MEDS: ZINC GLUCONATE 50 MG TABLET PO SCH (08:23)
[2021-05-24] MEDS: CHOLECALCIFEROL 1,000 UNIT TABLET PO SCH (08:23)
[2021-05-24] MEDS: FUROSEMIDE 40 MG/4 ML VIAL IV SCH ×2 (08:23→17:23)
[2021-05-24] MEDS: methylPREDNISolone SOD SUC 40 MG/1 ML VIAL IV SCH ×3 (08:23→23:46)
[2021-05-24] MEDS: ASCORBIC ACID 500 MG TABLET PO SCH ×2 (08:24→20:49)
[2021-05-24] MEDS: METOPROLOL TARTRATE 50 MG TABLET PO SCH ×2 (08:24→20:49)
[2021-05-24] MEDS: INSULIN GLARGINE 100 UNIT/ML SUBCUT SCH ×2 (08:27→20:49)
[2021-05-24] MEDS: POLYETHYLENE GLYCOL POWDER 17 GM PACK PO SCH (10:28)
[2021-05-24] MEDS: DIGOXIN 0.125 MG TABLET PO SCH (13:26)
[2021-05-24] MEDS: ENOXAPARIN 80 MG/0.8 ML SYRINGE SUBCUT SCH ×2 (13:26→23:46)
[2021-05-24] MEDS: cefTRIAXone 1,000 MG in SODIUM CHLORIDE 0.9% 100 ML IV SCH (17:00)
[2021-05-24] MEDS: MONTELUKAST 10 MG TABLET PO SCH (20:49)
[2021-05-25] MEDS: ACETAMINOPHEN 325 MG TABLET PO PRN (00:14)
[2021-05-25] MEDS: fentaNYL INJ 5,000 MCG in SODIUM CHLORIDE 0.9% 150 ML IV PRN ×4 (00:59→23:16)
[2021-05-25 03:46] LABS: ABG Base Excess 12.3 MMOL/L (-2.5-2.5); ABG HCO3 36.1 MMOL/L (20-26); ABG Oxygen Saturation 96.4 % (95-100); ABG PCO2 43.3 MM HG (35-48); ABG PH 7.539 (7.35-7.45); ABG PO2 87.6 MM HG (80-95); ABG TCO2 37.4 MMOL/L (23-27)
[2021-05-25] MEDS: INSULIN LISPRO 100 UNIT/ML SUBCUT SCH ×8 (04:21→21:59)
[2021-05-25] MEDS: ALBUTEROL INHALER 18 GM INH SCH ×5 (04:21→21:20)
[2021-05-25] MEDS: MIDAZOLAM 100 MG in SODIUM CHLORIDE 0.9% 80 ML IV PRN ×3 (06:33→22:13)
[2021-05-25] MEDS: methylPREDNISolone SOD SUC 40 MG/1 ML VIAL IV SCH ×2 (08:59→15:51)
[2021-05-25] MEDS: POLYETHYLENE GLYCOL POWDER 17 GM PACK PO SCH (08:59)
[2021-05-25] MEDS: CHOLECALCIFEROL 1,000 UNIT TABLET PO SCH (09:00)
[2021-05-25] MEDS: FAMOTIDINE 20 MG TABLET PO SCH ×2 (09:00→21:27)
[2021-05-25] MEDS: ZINC GLUCONATE 50 MG TABLET PO SCH (09:00)
[2021-05-25] MEDS: ASCORBIC ACID 500 MG TABLET PO SCH ×2 (09:01→21:27)
[2021-05-25] MEDS: METOPROLOL TARTRATE 50 MG TABLET PO SCH ×2 (09:01→21:27)
[2021-05-25] MEDS: INSULIN GLARGINE 100 UNIT/ML SUBCUT SCH ×2 (09:02→21:24)
[2021-05-25] MEDS: FUROSEMIDE 40 MG/4 ML VIAL IV SCH ×2 (09:03→15:50)
[2021-05-25 11:15] LABS: Basophils % 0.1 % (0.0-0.8); Hematocrit 32.4 VOL% (35.7-47.0); Hemoglobin 10.2 GM/DL (12.0-16.0); Immature Granulocytes % 0.9 %; Immature Granulocytes Absolute 0.09 #; Lymphocytes # 0.5 10*3/uL (1.4-4.0); Mean Corpuscular HGB Conc 31.5 GM/DL (32-36); Mean Corpuscular Volume 87.1 FL (87-102); Mean Platelet Volume 11.1 FL (9.6-12.0); Monocytes % 6.7 % (1.7-12.7); Neutrophils % 87.3 % (38.7-73.9); Platelet Count 172 T/CUMM (130-400); Red Blood Count 3.72 MC/CUMM (3.8-5.5); Red Cell Distribution Width 13.8 % (9.3-17.3); White Blood Count 9.9 T/CUMM (4-12)
[2021-05-25 11:35] LABS: Calcium 8.7 MG/DL (8.5-10.1); Osmolality,Calculated 294.1 MOS/KG (273-304); Potassium 4.1 MMOL/L (3.5-5.1)
[2021-05-25] MEDS: ENOXAPARIN 80 MG/0.8 ML SYRINGE SUBCUT SCH (13:02)
[2021-05-25 14:10] LABS: Bilirubin,Urine Negative (Negative); Blood, Urine Negative (Negative); Glucose,Urine (UA) Negative (Negative); Ketones,Urine Negative (Negative); Mucus,Urine Occasional /LPF (Occasional); Nitrite,Urine Negative (Negative); Protein,Urine Negative; Squamous Epithelial Cell,Urine Occasional /HPF (0-10); Urine Appearance Slightly Hazy (Clear); Urine Color Yellow (Yellow); Urine Specific Gravity 1.028 (1.001-1.035)
[2021-05-25] MEDS: DIGOXIN 0.125 MG TABLET PO SCH (14:16)
[2021-05-25] MEDS: LACTULOSE 20 GM/30 ML UDCUP PO PRN (14:17)
[2021-05-25] MEDS: cefTRIAXone 1,000 MG in SODIUM CHLORIDE 0.9% 100 ML IV SCH (15:50)
[2021-05-25] MEDS ORDERED: ACETAMINOPHEN 650 MG SUPP RECTAL PRN (15:54)
[2021-05-25 18:05] LABS: Allen Test Positive; Pt O2 Delivery Device Ventilator
[2021-05-25 18:08] LABS: ABG Base Excess 12.9 MMOL/L (-2.5-2.5); ABG HCO3 37.5 MMOL/L (20-26); ABG Oxygen Saturation 96.7 % (95-100); ABG PCO2 47.8 MM HG (35-48); ABG PH 7.512 (7.35-7.45); ABG PO2 88.6 MM HG (80-95); ABG TCO2 38.9 MMOL/L (23-27)
[2021-05-25] MEDS: METOCLOPRAMIDE 10 MG/2 ML VIAL IV SCH (18:20)
[2021-05-25] MEDS: MONTELUKAST 10 MG TABLET PO SCH (21:27)
[2021-05-26] MEDS: methylPREDNISolone SOD SUC 40 MG/1 ML VIAL IV SCH ×3 (00:02→16:43)
[2021-05-26] MEDS: METOCLOPRAMIDE 10 MG/2 ML VIAL IV SCH ×4 (00:04→18:51)
[2021-05-26] MEDS: ALBUTEROL INHALER 18 GM INH SCH ×6 (00:04→21:00)
[2021-05-26] MEDS: ENOXAPARIN 80 MG/0.8 ML SYRINGE SUBCUT SCH ×2 (00:04→11:39)
[2021-05-26] MEDS: INSULIN LISPRO 100 UNIT/ML SUBCUT SCH ×9 (00:59→21:17)
[2021-05-26 04:12] LABS: ABG Base Excess 10.9 MMOL/L (-2.5-2.5); ABG HCO3 35.5 MMOL/L (20-26); ABG Oxygen Saturation 97.7 % (95-100); ABG PCO2 47.6 MM HG (35-48); ABG PH 7.491 (7.35-7.45); ABG PO2 111.5 MM HG (80-95)
[2021-05-26] MEDS: MIDAZOLAM 100 MG in SODIUM CHLORIDE 0.9% 80 ML IV PRN ×3 (05:20→21:00)
[2021-05-26 06:00] LABS: Hematocrit 32.1 VOL% (35.7-47.0); Hemoglobin 10.1 GM/DL (12.0-16.0); Immature Granulocytes % 1.4 %; Immature Granulocytes Absolute 0.11 #; Lymphocytes # 0.5 10*3/uL (1.4-4.0); Lymphocytes % 6.1 % (21.3-54.2); Mean Corpuscular HGB Conc 31.5 GM/DL (32-36); Mean Corpuscular Volume 87.5 FL (87-102); Mean Platelet Volume 11.5 FL (9.6-12.0); Monocytes % 9.6 % (1.7-12.7); Neutrophils % 82.9 % (38.7-73.9); Platelet Count 160 T/CUMM (130-400); Red Blood Count 3.67 MC/CUMM (3.8-5.5); Red Cell Distribution Width 13.5 % (9.3-17.3); White Blood Count 8.1 T/CUMM (4-12)
[2021-05-26 06:13] LABS: Ferritin 399.3 ng/mL (8-252)
[2021-05-26 06:15] LABS: Calcium 8.5 MG/DL (8.5-10.1); Osmolality,Calculated 293.3 MOS/KG (273-304); Potassium 4.2 MMOL/L (3.5-5.1)
[2021-05-26] MEDS: fentaNYL INJ 5,000 MCG in SODIUM CHLORIDE 0.9% 150 ML IV PRN ×3 (06:56→21:43)
[2021-05-26] MEDS: ZINC GLUCONATE 50 MG TABLET PO SCH (08:15)
[2021-05-26] MEDS: CHOLECALCIFEROL 1,000 UNIT TABLET PO SCH (08:15)
[2021-05-26] MEDS: FAMOTIDINE 20 MG TABLET PO SCH ×2 (08:15→21:01)
[2021-05-26] MEDS: ASCORBIC ACID 500 MG TABLET PO SCH ×2 (08:15→21:01)
[2021-05-26] MEDS: INSULIN GLARGINE 100 UNIT/ML SUBCUT SCH ×2 (08:16→21:00)
[2021-05-26] MEDS: FUROSEMIDE 40 MG/4 ML VIAL IV SCH ×2 (08:45→16:22)
[2021-05-26] MEDS: POLYETHYLENE GLYCOL POWDER 17 GM PACK PO SCH (09:06)
[2021-05-26] MEDS: METOPROLOL TARTRATE 50 MG TABLET PO SCH ×2 (10:16→21:01)
[2021-05-26] MEDS: CEFEPIME 1,000 MG in SODIUM CHLORIDE 0.9% 100 ML IV SCH ×2 (11:49→18:51)
[2021-05-26] MEDS: DIGOXIN 0.125 MG TABLET PO SCH (13:07)
[2021-05-26] MEDS: MENTHOL/ZINC OXIDE OINT 71 GM JAR TOP SCH (21:00)
[2021-05-26] MEDS: MONTELUKAST 10 MG TABLET PO SCH (21:17)
[2021-05-27] MEDS: INSULIN LISPRO 100 UNIT/ML SUBCUT SCH ×10 (00:16→21:28)
[2021-05-27] MEDS: ALBUTEROL INHALER 18 GM INH SCH ×7 (00:16→22:12)
[2021-05-27] MEDS: ENOXAPARIN 80 MG/0.8 ML SYRINGE SUBCUT SCH ×2 (00:27→12:13)
[2021-05-27] MEDS: METOCLOPRAMIDE 10 MG/2 ML VIAL IV SCH (00:27)
[2021-05-27] MEDS: CEFEPIME 1,000 MG in SODIUM CHLORIDE 0.9% 100 ML IV SCH ×3 (00:27→14:00)
[2021-05-27] MEDS: methylPREDNISolone SOD SUC 40 MG/1 ML VIAL IV SCH ×4 (00:27→22:33)
[2021-05-27 04:13] LABS: ABG Base Excess 11.6 MMOL/L (-2.5-2.5); ABG HCO3 36.1 MMOL/L (20-26); ABG Oxygen Saturation 96.5 % (95-100); ABG PCO2 47.2 MM HG (35-48); ABG PH 7.502 (7.35-7.45); ABG PO2 87.3 MM HG (80-95); ABG TCO2 37.6 MMOL/L (23-27)
[2021-05-27] MEDS: MIDAZOLAM 100 MG in SODIUM CHLORIDE 0.9% 80 ML IV PRN ×2 (04:26→14:45)
[2021-05-27 05:13] LABS: Basophils % 0.1 % (0.0-0.8); Hematocrit 31.6 VOL% (35.7-47.0); Hemoglobin 10.3 GM/DL (12.0-16.0); Immature Granulocytes % 1.5 %; Immature Granulocytes Absolute 0.15 #; Lymphocytes # 0.4 10*3/uL (1.4-4.0); Lymphocytes % 3.5 % (21.3-54.2); Mean Corpuscular HGB Conc 32.6 GM/DL (32-36); Mean Corpuscular Volume 85.6 FL (87-102); Mean Platelet Volume 10.7 FL (9.6-12.0); Monocytes % 7.6 % (1.7-12.7); Neutrophils % 87.3 % (38.7-73.9); Platelet Count 182 T/CUMM (130-400); Red Blood Count 3.69 MC/CUMM (3.8-5.5); Red Cell Distribution Width 13.2 % (9.3-17.3); White Blood Count 9.9 T/CUMM (4-12)
[2021-05-27] MEDS: fentaNYL INJ 5,000 MCG in SODIUM CHLORIDE 0.9% 150 ML IV PRN ×3 (05:25→23:53)
[2021-05-27 05:29] LABS: Calcium 8.6 MG/DL (8.5-10.1); Osmolality,Calculated 288.3 MOS/KG (273-304); Potassium 3.9 MMOL/L (3.5-5.1)
[2021-05-27 05:34] LABS: Hypochromasia 1+; Lymphocytes 1 % (20-55); Microcytosis 1+; Platelet Estimate Adequate; Segmented Neutrophils 92 % (50-85); Total Cells Counted 100
[2021-05-27] MEDS: CHOLECALCIFEROL 1,000 UNIT TABLET PO SCH (09:13)
[2021-05-27] MEDS: ZINC GLUCONATE 50 MG TABLET PO SCH (09:13)
[2021-05-27] MEDS: FUROSEMIDE 40 MG/4 ML VIAL IV SCH ×2 (09:13→17:35)
[2021-05-27] MEDS: ASCORBIC ACID 500 MG TABLET PO SCH ×2 (09:13→21:29)
[2021-05-27] MEDS: FAMOTIDINE 20 MG TABLET PO SCH ×2 (09:13→21:29)
[2021-05-27] MEDS: INSULIN GLARGINE 100 UNIT/ML SUBCUT SCH ×2 (09:16→21:28)
[2021-05-27] MEDS: POLYETHYLENE GLYCOL POWDER 17 GM PACK PO SCH (11:58)
[2021-05-27] MEDS ORDERED: LEVOFLOXACIN INJ 750 MG/150 ML PREMIX IV SCH (13:00)
[2021-05-27] MEDS: SULFAMETHOX/TRIMETHOPRIM 200-40 MG/5 ML -20 ML UDCUP PER TUBE SCH ×2 (17:34→21:28)
[2021-05-27] MEDS: MENTHOL/ZINC OXIDE OINT 71 GM JAR TOP SCH ×2 (19:33→21:28)
[2021-05-27] MEDS: MONTELUKAST 10 MG TABLET PO SCH (21:29)
[2021-05-28] MEDS: INSULIN LISPRO 100 UNIT/ML SUBCUT SCH ×7 (00:28→21:42)
[2021-05-28] MEDS: ENOXAPARIN 80 MG/0.8 ML SYRINGE SUBCUT SCH ×2 (00:28→13:16)
[2021-05-28] MEDS: ALBUTEROL INHALER 18 GM INH SCH ×5 (02:39→19:26)
[2021-05-28 04:29] LABS: ABG Base Excess 9.7 MMOL/L (-2.5-2.5); ABG Oxygen Saturation 98.1 % (95-100); ABG PCO2 50.7 MM HG (35-48); ABG PH 7.457 (7.35-7.45); ABG TCO2 36.6 MMOL/L (23-27)
[2021-05-28 04:44] LABS: Basophils % 0.1 % (0.0-0.8); Hemoglobin 11.5 GM/DL (12.0-16.0); Immature Granulocytes % 1.2 %; Immature Granulocytes Absolute 0.15 #; Lymphocytes # 0.4 10*3/uL (1.4-4.0); Lymphocytes % 2.9 % (21.3-54.2); Mean Corpuscular HGB Conc 31.9 GM/DL (32-36); Mean Corpuscular Volume 86.7 FL (87-102); Mean Platelet Volume 10.4 FL (9.6-12.0); Monocytes % 4.3 % (1.7-12.7); Neutrophils % 91.5 % (38.7-73.9); Platelet Count 204 T/CUMM (130-400); Red Blood Count 4.15 MC/CUMM (3.8-5.5); Red Cell Distribution Width 13.6 % (9.3-17.3); White Blood Count 12.8 T/CUMM (4-12)
[2021-05-28 05:02] LABS: Calcium 8.6 MG/DL (8.5-10.1); Osmolality,Calculated 288.4 MOS/KG (273-304); Potassium 3.8 MMOL/L (3.5-5.1)
[2021-05-28 05:21] LABS: Lymphocytes 4 % (20-55); Nucleated Red Blood Cells 1 (0-5); Platelet Estimate Normal; Segmented Neutrophils 93 % (50-85); Total Cells Counted 100
[2021-05-28] MEDS: CHOLECALCIFEROL 1,000 UNIT TABLET PO SCH (08:11)
[2021-05-28] MEDS: FAMOTIDINE 20 MG TABLET PO SCH ×2 (08:11→21:41)
[2021-05-28] MEDS: ZINC GLUCONATE 50 MG TABLET PO SCH (08:11)
[2021-05-28] MEDS: ASCORBIC ACID 500 MG TABLET PO SCH ×2 (08:12→21:42)
[2021-05-28] MEDS: methylPREDNISolone SOD SUC 40 MG/1 ML VIAL IV SCH ×2 (08:12→16:30)
[2021-05-28] MEDS: SULFAMETHOX/TRIMETHOPRIM 200-40 MG/5 ML -20 ML UDCUP PER TUBE SCH ×2 (08:13→21:41)
[2021-05-28] MEDS: FUROSEMIDE 40 MG/4 ML VIAL IV SCH ×2 (08:13→16:58)
[2021-05-28] MEDS: INSULIN GLARGINE 100 UNIT/ML SUBCUT SCH ×2 (08:14→21:42)
[2021-05-28] MEDS: MENTHOL/ZINC OXIDE OINT 71 GM JAR TOP SCH ×2 (11:34→21:44)
[2021-05-28] MEDS: POLYETHYLENE GLYCOL POWDER 17 GM PACK PO SCH (11:34)
[2021-05-28] MEDS ORDERED: METOPROLOL TARTRATE 5 MG/5 ML VIAL IV ONE ×2 (13:49→13:50)
[2021-05-28] MEDS: MIDAZOLAM 100 MG in SODIUM CHLORIDE 0.9% 80 ML IV PRN (14:50)
[2021-05-28] MEDS: fentaNYL INJ 5,000 MCG in SODIUM CHLORIDE 0.9% 150 ML IV PRN (15:30)
[2021-05-28] MEDS: MONTELUKAST 10 MG TABLET PO SCH (21:41)
[2021-05-28] MEDS: METOPROLOL TARTRATE 50 MG TABLET PO SCH (21:42)
[2021-05-29] MEDS: methylPREDNISolone SOD SUC 40 MG/1 ML VIAL IV SCH ×4 (00:16→22:55)
[2021-05-29] MEDS: ALBUTEROL INHALER 18 GM INH SCH ×7 (00:17→23:20)
[2021-05-29] MEDS: INSULIN LISPRO 100 UNIT/ML SUBCUT SCH ×7 (00:22→21:20)
[2021-05-29] MEDS: ENOXAPARIN 80 MG/0.8 ML SYRINGE SUBCUT SCH ×3 (00:22→23:20)
[2021-05-29 03:50] LABS: ABG Base Excess 8.7 MMOL/L (-2.5-2.5); ABG HCO3 32.5 MMOL/L (20-26); ABG Oxygen Saturation 99.6 % (95-100); ABG PH 7.457 (7.35-7.45); ABG TCO2 30.5 MMOL/L (23-27)
[2021-05-29] MEDS: fentaNYL INJ 5,000 MCG in SODIUM CHLORIDE 0.9% 150 ML IV PRN ×2 (04:46→17:21)
[2021-05-29 06:41] LABS: Basophils % 0.1 % (0.0-0.8); Eosinophils % 0.2 % (0.00-10.9); Hematocrit 32.9 VOL% (35.7-47.0); Hemoglobin 10.6 GM/DL (12.0-16.0); Immature Granulocytes Absolute 0.18 #; Lymphocytes # 0.5 10*3/uL (1.4-4.0); Lymphocytes % 5.1 % (21.3-54.2); Mean Corpuscular HGB Conc 32.2 GM/DL (32-36); Mean Corpuscular Volume 85.2 FL (87-102); Mean Platelet Volume 10.2 FL (9.6-12.0); Monocytes % 4.8 % (1.7-12.7); Neutrophils % 87.8 % (38.7-73.9); Platelet Count 174 T/CUMM (130-400); Red Blood Count 3.86 MC/CUMM (3.8-5.5); Red Cell Distribution Width 13.9 % (9.3-17.3); White Blood Count 9.1 T/CUMM (4-12)
[2021-05-29 07:08] LABS: Calcium 8.6 MG/DL (8.5-10.1); Osmolality,Calculated 288.5 MOS/KG (273-304); Potassium 4.1 MMOL/L (3.5-5.1)
[2021-05-29 07:12] LABS: Ferritin 471.6 ng/mL (8-252)
[2021-05-29] MEDS: CHOLECALCIFEROL 1,000 UNIT TABLET PO SCH (08:22)
[2021-05-29] MEDS: FAMOTIDINE 20 MG TABLET PO SCH ×2 (08:22→21:15)
[2021-05-29] MEDS: ASCORBIC ACID 500 MG TABLET PO SCH ×2 (08:23→21:15)
[2021-05-29] MEDS: POLYETHYLENE GLYCOL POWDER 17 GM PACK PO SCH (08:23)
[2021-05-29] MEDS: ZINC GLUCONATE 50 MG TABLET PO SCH (08:23)
[2021-05-29] MEDS: METOPROLOL TARTRATE 50 MG TABLET PO SCH ×2 (08:23→22:09)
[2021-05-29] MEDS: FUROSEMIDE 40 MG/4 ML VIAL IV SCH (08:24)
[2021-05-29] MEDS: MENTHOL/ZINC OXIDE OINT 71 GM JAR TOP SCH ×2 (08:25→21:25)
[2021-05-29] MEDS: INSULIN GLARGINE 100 UNIT/ML SUBCUT SCH ×2 (08:25→21:20)
[2021-05-29] MEDS: SULFAMETHOX/TRIMETHOPRIM 200-40 MG/5 ML -20 ML UDCUP PER TUBE SCH ×2 (08:58→21:15)
[2021-05-29] MEDS: ACETAMINOPHEN 325 MG TABLET PO PRN (15:49)
[2021-05-29] MEDS: DOCUSATE SODIUM 100 MG CAPSULE PO PRN (21:15)
[2021-05-29] MEDS: MONTELUKAST 10 MG TABLET PO SCH (21:15)
[2021-05-29] MEDS: MIDAZOLAM 100 MG in SODIUM CHLORIDE 0.9% 80 ML IV PRN (21:50)
[2021-05-30] MEDS: INSULIN LISPRO 100 UNIT/ML SUBCUT SCH ×7 (02:02→22:11)
[2021-05-30 03:49] LABS: Basophils % 0.1 % (0.0-0.8); Eosinophils # 0.1 10*3/uL (0.0-0.87); Eosinophils % 1.1 % (0.00-10.9); Hematocrit 29.8 VOL% (35.7-47.0); Hemoglobin 9.2 GM/DL (12.0-16.0); Immature Granulocytes % 1.6 %; Immature Granulocytes Absolute 0.14 #; Lymphocytes # 0.5 10*3/uL (1.4-4.0); Lymphocytes % 5.3 % (21.3-54.2); Mean Corpuscular HGB Conc 30.9 GM/DL (32-36); Mean Corpuscular Volume 87.6 FL (87-102); Monocytes % 4.3 % (1.7-12.7); Neutrophils % 87.6 % (38.7-73.9); Platelet Count 152 T/CUMM (130-400); Red Cell Distribution Width 13.9 % (9.3-17.3); White Blood Count 8.9 T/CUMM (4-12)
[2021-05-30 03:58] LABS: ABG Base Excess 10.6 MMOL/L (-2.5-2.5); ABG HCO3 34.4 MMOL/L (20-26); ABG Oxygen Saturation 99.3 % (95-100); ABG PH 7.433 (7.35-7.45); ABG TCO2 33.3 MMOL/L (23-27)
[2021-05-30 04:07] LABS: Calcium 8.5 MG/DL (8.5-10.1); Osmolality,Calculated 283.7 MOS/KG (273-304); Potassium 3.6 MMOL/L (3.5-5.1)
[2021-05-30] MEDS: ALBUTEROL INHALER 18 GM INH SCH ×6 (04:56→22:17)
[2021-05-30] MEDS: POTASSIUM CHLORIDE RIDER 10 MEQ/100 ML PREMIX IV PRN ×2 (05:05→05:58)
[2021-05-30] MEDS: fentaNYL INJ 5,000 MCG in SODIUM CHLORIDE 0.9% 150 ML IV PRN ×2 (05:56→18:46)
[2021-05-30] MEDS: methylPREDNISolone SOD SUC 40 MG/1 ML VIAL IV SCH ×3 (07:58→22:35)
[2021-05-30] MEDS: SULFAMETHOX/TRIMETHOPRIM 200-40 MG/5 ML -20 ML UDCUP PER TUBE SCH (08:01)
[2021-05-30] MEDS: INSULIN GLARGINE 100 UNIT/ML SUBCUT SCH ×2 (08:03→22:11)
[2021-05-30] MEDS: FUROSEMIDE 40 MG/4 ML VIAL IV SCH (08:04)
[2021-05-30] MEDS: CHOLECALCIFEROL 1,000 UNIT TABLET PO SCH (08:04)
[2021-05-30] MEDS: FAMOTIDINE 20 MG TABLET PO SCH ×2 (08:04→21:25)
[2021-05-30] MEDS: POLYETHYLENE GLYCOL POWDER 17 GM PACK PO SCH (08:04)
[2021-05-30] MEDS: ASCORBIC ACID 500 MG TABLET PO SCH ×2 (08:05→21:25)
[2021-05-30] MEDS: ZINC GLUCONATE 50 MG TABLET PO SCH (08:05)
[2021-05-30] MEDS: METOPROLOL TARTRATE 50 MG TABLET PO SCH ×2 (08:06→22:10)
[2021-05-30] MEDS: MENTHOL/ZINC OXIDE OINT 71 GM JAR TOP SCH ×2 (08:06→22:17)
[2021-05-30] MEDS: LORazepam 2 MG/1 ML VIAL IV PRN ×2 (11:31→17:16)
[2021-05-30] MEDS ORDERED: QUEtiapine 25 MG TABLET PO ONE (12:45)
[2021-05-30] MEDS: ENOXAPARIN 80 MG/0.8 ML SYRINGE SUBCUT SCH (13:24)
[2021-05-30 13:28] LABS: Risk Ratio 5.16; VLDL Cholesterol 44.4 MG/DL
[2021-05-30] MEDS: LEVOFLOXACIN INJ 750 MG/150 ML PREMIX IV SCH (16:37)
[2021-05-30] MEDS: MIDAZOLAM 100 MG in SODIUM CHLORIDE 0.9% 80 ML IV PRN (18:45)
[2021-05-30] MEDS: MONTELUKAST 10 MG TABLET PO SCH (21:25)
[2021-05-30] MEDS: QUEtiapine 25 MG TABLET PO SCH (21:25)
[2021-05-30] MEDS: MELATONIN 3 MG TABLET PO PRN (21:25)
[2021-05-30] MEDS: METOCLOPRAMIDE 10 MG/2 ML VIAL IV PRN (22:26)
[2021-05-30] MEDS: LACTATED RINGERS 1,000 ML IV SCH (22:26)
[2021-05-31] MEDS: ENOXAPARIN 80 MG/0.8 ML SYRINGE SUBCUT SCH ×2 (00:59→15:33)
[2021-05-31] MEDS: INSULIN LISPRO 100 UNIT/ML SUBCUT SCH ×7 (01:00→21:30)
[2021-05-31] MEDS: ACETAMINOPHEN 325 MG TABLET PO PRN ×3 (04:01→21:35)
[2021-05-31] MEDS: ALBUTEROL INHALER 18 GM INH SCH ×6 (04:01→22:11)
[2021-05-31 04:19] LABS: Eosinophils % 0.2 % (0.00-10.9); Hematocrit 28.6 VOL% (35.7-47.0); Hemoglobin 9.1 GM/DL (12.0-16.0); Immature Granulocytes % 1.6 %; Immature Granulocytes Absolute 0.16 #; Lymphocytes # 0.3 10*3/uL (1.4-4.0); Lymphocytes % 2.7 % (21.3-54.2); Mean Corpuscular HGB Conc 31.8 GM/DL (32-36); Mean Corpuscular Volume 87.5 FL (87-102); Mean Platelet Volume 9.6 FL (9.6-12.0); Monocytes % 3.4 % (1.7-12.7); Neutrophils % 92.1 % (38.7-73.9); Platelet Count 136 T/CUMM (130-400); Red Blood Count 3.27 MC/CUMM (3.8-5.5)
[2021-05-31 04:41] LABS: Anisocytosis 1+; Band Neutrophils 7 % (0-10); Lymphocytes 3 % (20-55); Platelet Estimate Adequate; Segmented Neutrophils 87 % (50-85); Total Cells Counted 100
[2021-05-31 04:47] LABS: ABG Base Excess 9.3 MMOL/L (-2.5-2.5); ABG Oxygen Saturation 99.1 % (95-100); ABG PCO2 46.1 MM HG (35-48); ABG PH 7.476 (7.35-7.45); ABG TCO2 30.9 MMOL/L (23-27)
[2021-05-31] MEDS: fentaNYL INJ 5,000 MCG in SODIUM CHLORIDE 0.9% 150 ML IV PRN ×2 (07:19→20:32)
[2021-05-31] MEDS: INSULIN GLARGINE 100 UNIT/ML SUBCUT SCH ×2 (08:58→21:30)
[2021-05-31] MEDS: methylPREDNISolone SOD SUC 40 MG/1 ML VIAL IV SCH ×3 (08:59→22:48)
[2021-05-31] MEDS: FAMOTIDINE 20 MG TABLET PO SCH ×2 (08:59→21:35)
[2021-05-31] MEDS: ZINC GLUCONATE 50 MG TABLET PO SCH (08:59)
[2021-05-31] MEDS: METOPROLOL TARTRATE 50 MG TABLET PO SCH ×2 (08:59→21:35)
[2021-05-31] MEDS: ASCORBIC ACID 500 MG TABLET PO SCH ×2 (08:59→21:35)
[2021-05-31] MEDS: CHOLECALCIFEROL 1,000 UNIT TABLET PO SCH (08:59)
[2021-05-31] MEDS: MENTHOL/ZINC OXIDE OINT 71 GM JAR TOP SCH ×2 (09:43→22:11)
[2021-05-31] MEDS: LACTATED RINGERS 1,000 ML IV SCH ×3 (09:43→22:43)
[2021-05-31] MEDS: POLYETHYLENE GLYCOL POWDER 17 GM PACK PO SCH (09:43)
[2021-05-31] MEDS: MIDAZOLAM 100 MG in SODIUM CHLORIDE 0.9% 80 ML IV PRN (10:50)
[2021-05-31] MEDS: DEXTROSE 50% 25 GM/50 ML VIAL IV PRN (12:15)
[2021-05-31 13:20] LABS: Basophils % 0.1 % (0.0-0.8); Eosinophils % 0.2 % (0.00-10.9); Hematocrit 32.8 VOL% (35.7-47.0); Hemoglobin 10.2 GM/DL (12.0-16.0); Lymphocytes # 0.3 10*3/uL (1.4-4.0); Lymphocytes % 1.5 % (21.3-54.2); Mean Corpuscular HGB Conc 31.1 GM/DL (32-36); Mean Corpuscular Volume 88.4 FL (87-102); Mean Platelet Volume 10.4 FL (9.6-12.0); Monocytes % 3.8 % (1.7-12.7); Neutrophils % 93.4 % (38.7-73.9); Platelet Count 151 T/CUMM (130-400); Red Blood Count 3.71 MC/CUMM (3.8-5.5); Red Cell Distribution Width 14.7 % (9.3-17.3); White Blood Count 19.6 T/CUMM (4-12)
[2021-05-31] MEDS: LEVOFLOXACIN INJ 750 MG/150 ML PREMIX IV SCH (15:33)
[2021-05-31 15:47] LABS: Band Neutrophils 4 % (0-10); Eosinophils 2 % (0-10); Lymphocytes 3 % (20-55); Platelet Estimate Increased; Segmented Neutrophils 88 % (50-85); Total Cells Counted 100
[2021-05-31 15:48] LABS: Hypochromasia Slight
[2021-05-31 18:27] LABS: Bilirubin,Urine Negative (Negative); Blood, Urine Moderate mg/dL (Negative); Glucose,Urine (UA) Negative (Negative); Ketones,Urine Negative (Negative); Mucus,Urine Occasional /LPF (Occasional); Nitrite,Urine Negative (Negative); Protein,Urine 30 MG/DL; RBC,Urine 441 /HPF (0-4); Urine Appearance CLEAR (Clear); Urine Color Yellow (Yellow); Urine Specific Gravity 1.025 (1.001-1.035)
[2021-05-31] MEDS: ALUMINUM/MAGNES/SIMETH MAX STR 30 ML UDCUP PO PRN (21:30)
[2021-05-31] MEDS: LACTULOSE 20 GM/30 ML UDCUP PO PRN (21:30)
[2021-05-31] MEDS: MONTELUKAST 10 MG TABLET PO SCH (21:35)
[2021-05-31] MEDS: QUEtiapine 25 MG TABLET PO SCH (21:35)
[2021-05-31] MEDS: MELATONIN 3 MG TABLET PO PRN (21:35)
[2021-05-31] MEDS: METOCLOPRAMIDE 10 MG/2 ML VIAL IV PRN (21:42)
[2021-06-01] MEDS: ALBUTEROL INHALER 18 GM INH SCH ×6 (03:12→23:12)
[2021-06-01] MEDS: INSULIN LISPRO 100 UNIT/ML SUBCUT SCH ×7 (04:11→20:25)
[2021-06-01 04:36] LABS: ABG HCO3 29.8 MMOL/L (20-26); ABG Oxygen Saturation 97.2 % (95-100); ABG PCO2 57.3 MM HG (35-48); ABG PH 7.366 (7.35-7.45); ABG PO2 95.1 MM HG (80-95); ABG TCO2 29.9 MMOL/L (23-27); Allen Test Positive; Pt O2 Delivery Device Ventilator
[2021-06-01 05:15] LABS: Basophils % 0.1 % (0.0-0.8); Hematocrit 32.1 VOL% (35.7-47.0); Hemoglobin 10.1 GM/DL (12.0-16.0); Immature Granulocytes % 0.8 %; Lymphocytes # 0.3 10*3/uL (1.4-4.0); Lymphocytes % 2.3 % (21.3-54.2); Mean Corpuscular HGB Conc 31.5 GM/DL (32-36); Mean Corpuscular Volume 88.2 FL (87-102); Mean Platelet Volume 10.4 FL (9.6-12.0); Monocytes % 3.6 % (1.7-12.7); Neutrophils % 93.2 % (38.7-73.9); Platelet Count 118 T/CUMM (130-400); Red Blood Count 3.64 MC/CUMM (3.8-5.5); Red Cell Distribution Width 14.6 % (9.3-17.3); White Blood Count 12.4 T/CUMM (4-12)
[2021-06-01] MEDS: fentaNYL INJ 5,000 MCG in SODIUM CHLORIDE 0.9% 150 ML IV PRN (05:35)
[2021-06-01 05:41] LABS: Hypochromasia Slight; Lymphocytes 1 % (20-55); Microcytosis Slight; Platelet Estimate Decreased; Segmented Neutrophils 95 % (50-85); Total Cells Counted 100
[2021-06-01] MEDS: LACTATED RINGERS 1,000 ML IV SCH ×3 (08:45→21:21)
[2021-06-01] MEDS: methylPREDNISolone SOD SUC 40 MG/1 ML VIAL IV SCH ×3 (09:26→23:12)
[2021-06-01] MEDS: CHOLECALCIFEROL 1,000 UNIT TABLET PO SCH (09:27)
[2021-06-01] MEDS: METOPROLOL TARTRATE 50 MG TABLET PO SCH ×2 (09:27→20:24)
[2021-06-01] MEDS: ZINC GLUCONATE 50 MG TABLET PO SCH (09:27)
[2021-06-01] MEDS: FAMOTIDINE 20 MG TABLET PO SCH ×2 (09:27→20:24)
[2021-06-01] MEDS: ENOXAPARIN 40 MG/0.4 ML SYRINGE SUBCUT SCH (09:27)
[2021-06-01] MEDS: ASCORBIC ACID 500 MG TABLET PO SCH ×2 (09:27→20:24)
[2021-06-01] MEDS: INSULIN GLARGINE 100 UNIT/ML SUBCUT SCH ×2 (09:29→20:25)
[2021-06-01] MEDS: ACETAMINOPHEN 325 MG TABLET PO PRN (09:58)
[2021-06-01] MEDS: POLYETHYLENE GLYCOL POWDER 17 GM PACK PO SCH (10:48)
[2021-06-01] MEDS: HYDROmorphone 2 MG/1 ML VIAL IV PRN ×2 (11:20→18:20)
[2021-06-01] MEDS: MIDAZOLAM 100 MG in SODIUM CHLORIDE 0.9% 80 ML IV PRN ×2 (11:25→17:50)
[2021-06-01] MEDS: LEVOFLOXACIN INJ 750 MG/150 ML PREMIX IV SCH (15:50)
[2021-06-01] MEDS: MENTHOL/ZINC OXIDE OINT 71 GM JAR TOP SCH ×2 (19:14→21:17)
[2021-06-01] MEDS: QUEtiapine 25 MG TABLET PO SCH (20:24)
[2021-06-01] MEDS: MONTELUKAST 10 MG TABLET PO SCH (20:24)
[2021-06-02] MEDS: INSULIN LISPRO 100 UNIT/ML SUBCUT SCH ×7 (00:16→20:33)
[2021-06-02] MEDS: HYDROmorphone 2 MG/1 ML VIAL IV PRN ×2 (00:19→21:51)
[2021-06-02] MEDS: LACTATED RINGERS 1,000 ML IV SCH ×4 (00:24→22:53)
[2021-06-02] MEDS: MIDAZOLAM 100 MG in SODIUM CHLORIDE 0.9% 80 ML IV PRN ×4 (01:05→22:54)
[2021-06-02] MEDS: ALBUTEROL INHALER 18 GM INH SCH ×6 (03:55→22:55)
[2021-06-02 04:19] LABS: ABG HCO3 33.9 MMOL/L (20-26); ABG Oxygen Saturation 98.3 % (95-100); ABG PCO2 63.1 MM HG (35-48); ABG PH 7.348 (7.35-7.45); ABG PO2 139.2 MM HG (80-95); ABG TCO2 35.8 MMOL/L (23-27)
[2021-06-02 05:32] LABS: Basophils % 0.2 % (0.0-0.8); Eosinophils % 0.2 % (0.00-10.9); Hematocrit 28.3 VOL% (35.7-47.0); Hemoglobin 8.9 GM/DL (12.0-16.0); Immature Granulocytes % 0.5 %; Immature Granulocytes Absolute 0.03 #; Lymphocytes # 0.2 10*3/uL (1.4-4.0); Lymphocytes % 3.3 % (21.3-54.2); Mean Corpuscular HGB Conc 31.4 GM/DL (32-36); Mean Corpuscular Volume 89.3 FL (87-102); Mean Platelet Volume 10.5 FL (9.6-12.0); Monocytes % 4.1 % (1.7-12.7); Neutrophils % 91.7 % (38.7-73.9); Platelet Count 79 T/CUMM (130-400); Red Blood Count 3.17 MC/CUMM (3.8-5.5); Red Cell Distribution Width 14.7 % (9.3-17.3)
[2021-06-02 06:03] LABS: Hypochromasia 1+; Lymphocytes 5 % (20-55); Microcytosis 1+; Platelet Estimate Decreased; Segmented Neutrophils 90 % (50-85); Total Cells Counted 100
[2021-06-02 06:07] LABS: Calcium 8.8 MG/DL (8.5-10.1); Osmolality,Calculated 283.5 MOS/KG (273-304); Potassium 4.8 MMOL/L (3.5-5.1)
[2021-06-02] MEDS: methylPREDNISolone SOD SUC 40 MG/1 ML VIAL IV SCH ×3 (06:31→22:55)
[2021-06-02] MEDS: ENOXAPARIN 40 MG/0.4 ML SYRINGE SUBCUT SCH (08:15)
[2021-06-02] MEDS: CHOLECALCIFEROL 1,000 UNIT TABLET PO SCH (08:16)
[2021-06-02] MEDS: ZINC GLUCONATE 50 MG TABLET PO SCH (08:16)
[2021-06-02] MEDS: FAMOTIDINE 20 MG TABLET PO SCH ×2 (08:16→20:32)
[2021-06-02] MEDS: ASCORBIC ACID 500 MG TABLET PO SCH ×2 (08:16→20:32)
[2021-06-02] MEDS: METOPROLOL TARTRATE 50 MG TABLET PO SCH ×2 (08:16→20:32)
[2021-06-02] MEDS: INSULIN GLARGINE 100 UNIT/ML SUBCUT SCH ×2 (08:17→20:32)
[2021-06-02] MEDS: MENTHOL/ZINC OXIDE OINT 71 GM JAR TOP SCH ×2 (11:47→21:14)
[2021-06-02] MEDS: LEVOFLOXACIN INJ 750 MG/150 ML PREMIX IV SCH (15:30)
[2021-06-02] MEDS: POLYETHYLENE GLYCOL POWDER 17 GM PACK PO SCH (18:47)
[2021-06-02] MEDS: MONTELUKAST 10 MG TABLET PO SCH (20:32)
[2021-06-02] MEDS: QUEtiapine 25 MG TABLET PO SCH (20:32)
[2021-06-03] MEDS: INSULIN LISPRO 100 UNIT/ML SUBCUT SCH ×7 (00:39→20:25)
[2021-06-03 04:04] LABS: ABG Base Excess 6.2 MMOL/L (-2.5-2.5); ABG Oxygen Saturation 96.5 % (95-100); ABG PCO2 52.6 MM HG (35-48); ABG PH 7.397 (7.35-7.45); ABG PO2 88.2 MM HG (80-95)
[2021-06-03] MEDS: ALBUTEROL INHALER 18 GM INH SCH ×6 (04:30→23:28)
[2021-06-03] MEDS: LACTATED RINGERS 1,000 ML IV SCH ×2 (05:30→14:01)
[2021-06-03] MEDS: MIDAZOLAM 100 MG in SODIUM CHLORIDE 0.9% 80 ML IV PRN ×3 (06:15→20:45)
[2021-06-03] MEDS: methylPREDNISolone SOD SUC 40 MG/1 ML VIAL IV SCH ×3 (06:31→23:29)
[2021-06-03 06:42] LABS: Eosinophils % 0.3 % (0.00-10.9); Hematocrit 28.9 VOL% (35.7-47.0); Hemoglobin 8.9 GM/DL (12.0-16.0); Immature Granulocytes % 0.7 %; Immature Granulocytes Absolute 0.05 #; Lymphocytes # 0.3 10*3/uL (1.4-4.0); Lymphocytes % 3.8 % (21.3-54.2); Mean Corpuscular HGB Conc 30.8 GM/DL (32-36); Mean Corpuscular Volume 89.2 FL (87-102); Mean Platelet Volume 10.6 FL (9.6-12.0); Monocytes % 4.2 % (1.7-12.7); Platelet Count 90 T/CUMM (130-400); Red Blood Count 3.24 MC/CUMM (3.8-5.5); Red Cell Distribution Width 14.9 % (9.3-17.3); White Blood Count 6.8 T/CUMM (4-12)
[2021-06-03 07:09] LABS: Calcium 8.6 MG/DL (8.5-10.1); Hypochromasia 1+; Lymphocytes 5 % (20-55); Microcytosis 1+; Osmolality,Calculated 283.3 MOS/KG (273-304); Platelet Estimate Decreased; Potassium 4.6 MMOL/L (3.5-5.1); Segmented Neutrophils 90 % (50-85); Total Cells Counted 100
[2021-06-03] MEDS: INSULIN GLARGINE 100 UNIT/ML SUBCUT SCH ×2 (08:55→23:26)
[2021-06-03] MEDS: CHOLECALCIFEROL 1,000 UNIT TABLET PO SCH (08:57)
[2021-06-03] MEDS: METOPROLOL TARTRATE 50 MG TABLET PO SCH ×2 (08:57→20:53)
[2021-06-03] MEDS: FAMOTIDINE 20 MG TABLET PO SCH ×2 (08:58→20:54)
[2021-06-03] MEDS: ENOXAPARIN 40 MG/0.4 ML SYRINGE SUBCUT SCH (08:58)
[2021-06-03] MEDS: POLYETHYLENE GLYCOL POWDER 17 GM PACK PO SCH (08:58)
[2021-06-03] MEDS: ASCORBIC ACID 500 MG TABLET PO SCH ×2 (08:58→20:53)
[2021-06-03] MEDS: ZINC GLUCONATE 50 MG TABLET PO SCH (08:59)
[2021-06-03] MEDS: MENTHOL/ZINC OXIDE OINT 71 GM JAR TOP SCH ×2 (08:59→20:24)
[2021-06-03] MEDS: FUROSEMIDE 40 MG/4 ML VIAL IV SCH (10:31)
[2021-06-03] MEDS: HYDROmorphone 2 MG/1 ML VIAL IV PRN (14:49)
[2021-06-03] MEDS: fentaNYL 50 MCG/HR PATCH TRANSDERM SCH (16:16)
[2021-06-03] MEDS: LEVOFLOXACIN INJ 750 MG/150 ML PREMIX IV SCH (17:00)
[2021-06-03] MEDS: DEXTROSE 50% 25 GM/50 ML VIAL IV PRN (18:26)
[2021-06-03] MEDS: QUEtiapine 25 MG TABLET PO SCH (20:53)
[2021-06-03] MEDS: MONTELUKAST 10 MG TABLET PO SCH (20:54)
[2021-06-03] MEDS: METOCLOPRAMIDE 10 MG/2 ML VIAL IV PRN (20:54)
[2021-06-04] MEDS: INSULIN LISPRO 100 UNIT/ML SUBCUT SCH ×4 (00:53→18:23)
[2021-06-04] MEDS: MIDAZOLAM 100 MG in SODIUM CHLORIDE 0.9% 80 ML IV PRN ×3 (03:22→17:40)
[2021-06-04] MEDS: ALBUTEROL INHALER 18 GM INH SCH ×6 (03:24→23:04)
[2021-06-04] MEDS: methylPREDNISolone SOD SUC 40 MG/1 ML VIAL IV SCH ×3 (07:52→23:03)
[2021-06-04] MEDS: LACTATED RINGERS 1,000 ML IV SCH ×2 (08:00→15:15)
[2021-06-04] MEDS: FUROSEMIDE 40 MG/4 ML VIAL IV SCH (09:28)
[2021-06-04] MEDS: METOPROLOL TARTRATE 50 MG TABLET PO SCH ×2 (09:29→21:41)
[2021-06-04] MEDS: ASCORBIC ACID 500 MG TABLET PO SCH ×2 (09:29→21:41)
[2021-06-04] MEDS: FONDAPARINUX 2.5 MG/0.5 ML SYRINGE SUBCUT SCH (09:29)
[2021-06-04] MEDS: FAMOTIDINE 20 MG TABLET PO SCH ×2 (09:29→21:41)
[2021-06-04] MEDS: CHOLECALCIFEROL 1,000 UNIT TABLET PO SCH (09:29)
[2021-06-04] MEDS: ZINC GLUCONATE 50 MG TABLET PO SCH (09:29)
[2021-06-04] MEDS: POLYETHYLENE GLYCOL POWDER 17 GM PACK PO SCH (09:29)
[2021-06-04] MEDS: MENTHOL/ZINC OXIDE OINT 71 GM JAR TOP SCH ×2 (09:30→21:41)
[2021-06-04] MEDS: METOCLOPRAMIDE 10 MG/2 ML VIAL IV PRN ×2 (13:40→21:42)
[2021-06-04] MEDS: HYDROmorphone 2 MG/1 ML VIAL IV PRN ×2 (14:06→18:23)
[2021-06-04] MEDS: LEVOFLOXACIN INJ 750 MG/150 ML PREMIX IV SCH (15:18)
[2021-06-04] MEDS: DOCUSATE SODIUM 100 MG CAPSULE PO PRN (21:41)
[2021-06-04] MEDS: MELATONIN 3 MG TABLET PO PRN (21:41)
[2021-06-04] MEDS: MONTELUKAST 10 MG TABLET PO SCH (21:41)
[2021-06-04] MEDS: QUEtiapine 25 MG TABLET PO SCH (21:53)
[2021-06-05] MEDS: MIDAZOLAM 100 MG in SODIUM CHLORIDE 0.9% 80 ML IV PRN ×4 (00:31→23:33)
[2021-06-05] MEDS: INSULIN LISPRO 100 UNIT/ML SUBCUT SCH ×4 (00:42→19:18)
[2021-06-05] MEDS: ALBUTEROL INHALER 18 GM INH SCH ×6 (03:05→23:37)
[2021-06-05 03:42] LABS: ABG Base Excess 8.7 MMOL/L (-2.5-2.5); ABG HCO3 32.4 MMOL/L (20-26); ABG Oxygen Saturation 95.7 % (95-100); ABG PCO2 51.4 MM HG (35-48); ABG PH 7.434 (7.35-7.45); ABG PO2 82.2 MM HG (80-95); ABG TCO2 30.9 MMOL/L (23-27)
[2021-06-05 04:38] LABS: Eosinophils # 0.1 10*3/uL (0.0-0.87); Eosinophils % 1.1 % (0.00-10.9); Hematocrit 28.3 VOL% (35.7-47.0); Hemoglobin 8.8 GM/DL (12.0-16.0); Immature Granulocytes Absolute 0.11 #; Lymphocytes # 1.1 10*3/uL (1.4-4.0); Lymphocytes % 19.3 % (21.3-54.2); Mean Corpuscular HGB Conc 31.1 GM/DL (32-36); Mean Corpuscular Volume 88.4 FL (87-102); Monocytes % 6.5 % (1.7-12.7); Neutrophils % 71.1 % (38.7-73.9); Red Cell Distribution Width 14.8 % (9.3-17.3); White Blood Count 5.6 T/CUMM (4-12)
[2021-06-05 04:39] LABS: Platelet Count 100 T/CUMM (130-400)
[2021-06-05 04:54] LABS: Hypochromasia 1+; Microcytosis 1+; Platelet Estimate Decreased
[2021-06-05 05:01] LABS: Calcium 8.3 MG/DL (8.5-10.1); Osmolality,Calculated 288.4 MOS/KG (273-304); Potassium 3.3 MMOL/L (3.5-5.1)
[2021-06-05] MEDS: methylPREDNISolone SOD SUC 40 MG/1 ML VIAL IV SCH ×2 (06:50→18:19)
[2021-06-05] MEDS: ZINC GLUCONATE 50 MG TABLET PO SCH (08:45)
[2021-06-05] MEDS: FONDAPARINUX 2.5 MG/0.5 ML SYRINGE SUBCUT SCH (08:45)
[2021-06-05] MEDS: FAMOTIDINE 20 MG TABLET PO SCH ×2 (08:45→21:25)
[2021-06-05] MEDS: ASCORBIC ACID 500 MG TABLET PO SCH ×2 (08:46→21:24)
[2021-06-05] MEDS: METOPROLOL TARTRATE 50 MG TABLET PO SCH ×2 (08:46→21:24)
[2021-06-05] MEDS: CHOLECALCIFEROL 1,000 UNIT TABLET PO SCH (08:46)
[2021-06-05] MEDS: MENTHOL/ZINC OXIDE OINT 71 GM JAR TOP SCH ×2 (08:47→21:26)
[2021-06-05] MEDS: FUROSEMIDE 40 MG/4 ML VIAL IV SCH (08:47)
[2021-06-05] MEDS: LACTATED RINGERS 1,000 ML IV SCH ×2 (11:15→19:17)
[2021-06-05] MEDS: LEVOFLOXACIN INJ 750 MG/150 ML PREMIX IV SCH (18:19)
[2021-06-05] MEDS: POLYETHYLENE GLYCOL POWDER 17 GM PACK PO SCH (19:17)
[2021-06-05] MEDS: MONTELUKAST 10 MG TABLET PO SCH (21:24)
[2021-06-05] MEDS: QUEtiapine 25 MG TABLET PO SCH (21:25)
[2021-06-06] MEDS: INSULIN LISPRO 100 UNIT/ML SUBCUT SCH ×4 (01:01→18:37)
[2021-06-06] MEDS: ALBUTEROL INHALER 18 GM INH SCH ×6 (03:49→23:30)
[2021-06-06 03:50] LABS: ABG Base Excess 11.1 MMOL/L (-2.5-2.5); ABG HCO3 35.6 MMOL/L (20-26); ABG Oxygen Saturation 98.3 % (95-100); ABG PCO2 47.4 MM HG (35-48); ABG PH 7.494 (7.35-7.45); ABG PO2 139.2 MM HG (80-95); ABG TCO2 37.1 MMOL/L (23-27)
[2021-06-06 05:00] LABS: Basophils % 0.2 % (0.0-0.8); Eosinophils # 0.1 10*3/uL (0.0-0.87); Eosinophils % 1.7 % (0.00-10.9); Hematocrit 30.2 VOL% (35.7-47.0); Hemoglobin 9.3 GM/DL (12.0-16.0); Immature Granulocytes % 2.8 %; Immature Granulocytes Absolute 0.16 #; Lymphocytes # 1.3 10*3/uL (1.4-4.0); Lymphocytes % 21.7 % (21.3-54.2); Mean Corpuscular HGB Conc 30.8 GM/DL (32-36); Mean Corpuscular Volume 88.6 FL (87-102); Mean Platelet Volume 10.5 FL (9.6-12.0); Monocytes % 5.6 % (1.7-12.7); Platelet Count 111 T/CUMM (130-400); Red Blood Count 3.41 MC/CUMM (3.8-5.5); White Blood Count 5.8 T/CUMM (4-12)
[2021-06-06 05:23] LABS: Calcium 8.5 MG/DL (8.5-10.1); Potassium 3.6 MMOL/L (3.5-5.1)
[2021-06-06] MEDS: methylPREDNISolone SOD SUC 40 MG/1 ML VIAL IV SCH ×2 (05:41→17:38)
[2021-06-06 05:46] LABS: Osmolality,Calculated 285.7 MOS/KG (273-304)
[2021-06-06] MEDS: POTASSIUM BICARB EFFERVESCENT 20 MEQ TAB.EFF PER TUBE PRN (06:31)
[2021-06-06] MEDS: FONDAPARINUX 2.5 MG/0.5 ML SYRINGE SUBCUT SCH (08:14)
[2021-06-06] MEDS: fentaNYL 50 MCG/HR PATCH TRANSDERM SCH (08:14)
[2021-06-06] MEDS: ACETAMINOPHEN 325 MG TABLET PO PRN (08:15)
[2021-06-06] MEDS: CHOLECALCIFEROL 1,000 UNIT TABLET PO SCH (08:15)
[2021-06-06] MEDS: FAMOTIDINE 20 MG TABLET PO SCH ×2 (08:15→20:15)
[2021-06-06] MEDS: FUROSEMIDE 40 MG/4 ML VIAL IV SCH (08:15)
[2021-06-06] MEDS: METOPROLOL TARTRATE 50 MG TABLET PO SCH ×2 (08:16→20:28)
[2021-06-06] MEDS: MENTHOL/ZINC OXIDE OINT 71 GM JAR TOP SCH ×2 (08:16→20:14)
[2021-06-06] MEDS: ASCORBIC ACID 500 MG TABLET PO SCH ×2 (08:16→20:15)
[2021-06-06] MEDS: ZINC GLUCONATE 50 MG TABLET PO SCH (08:16)
[2021-06-06] MEDS: QUEtiapine 25 MG TABLET PO SCH ×2 (08:18→20:16)
[2021-06-06] MEDS: MIDAZOLAM 100 MG in SODIUM CHLORIDE 0.9% 80 ML IV PRN ×2 (09:25→20:13)
[2021-06-06] MEDS: LEVOFLOXACIN INJ 750 MG/150 ML PREMIX IV SCH (17:30)
[2021-06-06] MEDS: POLYETHYLENE GLYCOL POWDER 17 GM PACK PO SCH (18:36)
[2021-06-06] MEDS: METOCLOPRAMIDE 10 MG/2 ML VIAL IV PRN (20:15)
[2021-06-06] MEDS: ALUMINUM/MAGNES/SIMETH MAX STR 30 ML UDCUP PO PRN (20:15)
[2021-06-06] MEDS: MELATONIN 3 MG TABLET PO PRN (20:15)
[2021-06-06] MEDS: MONTELUKAST 10 MG TABLET PO SCH (20:15)
[2021-06-06] MEDS: DOCUSATE SODIUM 100 MG CAPSULE PO PRN (20:15)
[2021-06-07] MEDS: INSULIN LISPRO 100 UNIT/ML SUBCUT SCH ×4 (00:59→18:36)
[2021-06-07 03:59] LABS: Eosinophils # 0.1 10*3/uL (0.0-0.87); Eosinophils % 1.2 % (0.00-10.9); Hematocrit 32.3 VOL% (35.7-47.0); Immature Granulocytes % 2.6 %; Immature Granulocytes Absolute 0.15 #; Lymphocytes # 1.3 10*3/uL (1.4-4.0); Lymphocytes % 23.3 % (21.3-54.2); Mean Corpuscular Volume 87.5 FL (87-102); Mean Platelet Volume 10.3 FL (9.6-12.0); Monocytes % 5.4 % (1.7-12.7); Neutrophils % 67.5 % (38.7-73.9); Platelet Count 129 T/CUMM (130-400); Red Blood Count 3.69 MC/CUMM (3.8-5.5); Red Cell Distribution Width 14.8 % (9.3-17.3); White Blood Count 5.7 T/CUMM (4-12)
[2021-06-07 04:09] LABS: Calcium 8.8 MG/DL (8.5-10.1)
[2021-06-07 04:41] LABS: Osmolality,Calculated 294.3 MOS/KG (273-304); Potassium 3.9 MMOL/L (3.5-5.1)
[2021-06-07 04:44] LABS: Band Neutrophils 2 % (0-10); Hypochromasia 1+; Lymphocytes 20 % (20-55); Microcytosis 1+; Segmented Neutrophils 70 % (50-85); Total Cells Counted 100
[2021-06-07] MEDS: ALBUTEROL INHALER 18 GM INH SCH ×6 (04:56→23:10)
[2021-06-07] MEDS: METOPROLOL TARTRATE 5 MG/5 ML VIAL IV PRN (04:59)
[2021-06-07 05:22] LABS: ABG Base Excess 12.4 MMOL/L (-2.5-2.5); ABG HCO3 36.2 MMOL/L (20-26); ABG Oxygen Saturation 98.4 % (95-100); ABG PCO2 48.6 MM HG (35-48); ABG PH 7.496 (7.35-7.45); ABG TCO2 33.6 MMOL/L (23-27)
[2021-06-07] MEDS: HYDROmorphone 2 MG/1 ML VIAL IV PRN ×4 (05:27→20:43)
[2021-06-07] MEDS: methylPREDNISolone SOD SUC 40 MG/1 ML VIAL IV SCH ×2 (05:49→18:36)
[2021-06-07] MEDS: METOPROLOL TARTRATE 50 MG TABLET PO SCH ×2 (08:00→20:43)
[2021-06-07] MEDS: FONDAPARINUX 2.5 MG/0.5 ML SYRINGE SUBCUT SCH (08:31)
[2021-06-07] MEDS: CHOLECALCIFEROL 1,000 UNIT TABLET PO SCH (08:32)
[2021-06-07] MEDS: FUROSEMIDE 40 MG/4 ML VIAL IV SCH (08:32)
[2021-06-07] MEDS: ASCORBIC ACID 500 MG TABLET PO SCH ×2 (08:33→20:43)
[2021-06-07] MEDS: QUEtiapine 25 MG TABLET PO SCH ×2 (08:33→20:43)
[2021-06-07] MEDS: FAMOTIDINE 20 MG TABLET PO SCH ×2 (08:33→20:43)
[2021-06-07] MEDS: ZINC GLUCONATE 50 MG TABLET PO SCH (08:33)
[2021-06-07] MEDS: LEVOFLOXACIN INJ 750 MG/150 ML PREMIX IV SCH (08:33)
[2021-06-07] MEDS: INSULIN GLARGINE 100 UNIT/ML SUBCUT SCH (08:44)
[2021-06-07] MEDS ORDERED: VANCOMYCIN INJ 1,000 MG in SODIUM CHLORIDE 0.9% 250 ML IV SCH (09:00)
[2021-06-07] MEDS: VANCOMYCIN INJ 1,750 MG in SODIUM CHLORIDE 0.9% 500 ML IV SCH ×2 (10:00→22:01)
[2021-06-07] MEDS: MENTHOL/ZINC OXIDE OINT 71 GM JAR TOP SCH ×2 (11:43→20:43)
[2021-06-07] MEDS: POLYETHYLENE GLYCOL POWDER 17 GM PACK PO SCH (11:45)
[2021-06-07] MEDS: MONTELUKAST 10 MG TABLET PO SCH (20:43)
[2021-06-08] MEDS: INSULIN LISPRO 100 UNIT/ML SUBCUT SCH ×4 (00:52→18:00)
[2021-06-08] MEDS: ALBUTEROL INHALER 18 GM INH SCH ×6 (02:12→23:15)
[2021-06-08] MEDS: ACETAMINOPHEN 325 MG TABLET PO PRN ×2 (03:30→13:30)
[2021-06-08 04:03] LABS: ABG Base Excess 11.7 MMOL/L (-2.5-2.5); ABG HCO3 35.4 MMOL/L (20-26); ABG PCO2 52.1 MM HG (35-48); ABG PH 7.465 (7.35-7.45); ABG PO2 73.5 MM HG (80-95); ABG TCO2 33.3 MMOL/L (23-27)
[2021-06-08 04:24] LABS: Basophils % 0.3 % (0.0-0.8); Eosinophils # 0.1 10*3/uL (0.0-0.87); Eosinophils % 1.9 % (0.00-10.9); Hematocrit 32.9 VOL% (35.7-47.0); Hemoglobin 10.2 GM/DL (12.0-16.0); Immature Granulocytes % 3.5 %; Immature Granulocytes Absolute 0.26 #; Lymphocytes # 1.2 10*3/uL (1.4-4.0); Lymphocytes % 15.5 % (21.3-54.2); Mean Corpuscular Volume 89.2 FL (87-102); Mean Platelet Volume 10.4 FL (9.6-12.0); Monocytes % 6.9 % (1.7-12.7); Neutrophils % 71.9 % (38.7-73.9); Platelet Count 148 T/CUMM (130-400); Red Blood Count 3.69 MC/CUMM (3.8-5.5); White Blood Count 7.4 T/CUMM (4-12)
[2021-06-08] MEDS: methylPREDNISolone SOD SUC 40 MG/1 ML VIAL IV SCH ×2 (05:47→18:00)
[2021-06-08 06:35] LABS: Hypochromasia 1+; Lymphocytes 20 % (20-55); Microcytosis 1+; Platelet Estimate Adequate; Segmented Neutrophils 78 % (50-85); Total Cells Counted 100
[2021-06-08 06:51] LABS: Calcium 8.8 MG/DL (8.5-10.1); Osmolality,Calculated 287.8 MOS/KG (273-304); Potassium 3.4 MMOL/L (3.5-5.1)
[2021-06-08] MEDS: CHOLECALCIFEROL 1,000 UNIT TABLET PO SCH (09:21)
[2021-06-08] MEDS: FAMOTIDINE 20 MG TABLET PO SCH ×2 (09:21→20:51)
[2021-06-08] MEDS: ZINC GLUCONATE 50 MG TABLET PO SCH (09:21)
[2021-06-08] MEDS: METOPROLOL TARTRATE 50 MG TABLET PO SCH ×2 (09:22→20:50)
[2021-06-08] MEDS: FUROSEMIDE 40 MG/4 ML VIAL IV SCH (09:22)
[2021-06-08] MEDS: MENTHOL/ZINC OXIDE OINT 71 GM JAR TOP SCH ×2 (09:22→20:56)
[2021-06-08] MEDS: QUEtiapine 25 MG TABLET PO SCH ×2 (09:22→20:49)
[2021-06-08] MEDS: LEVOFLOXACIN INJ 750 MG/150 ML PREMIX IV SCH (09:22)
[2021-06-08] MEDS: ASCORBIC ACID 500 MG TABLET PO SCH ×2 (09:22→20:51)
[2021-06-08] MEDS: INSULIN GLARGINE 100 UNIT/ML SUBCUT SCH (09:23)
[2021-06-08] MEDS: POLYETHYLENE GLYCOL POWDER 17 GM PACK PO SCH (10:27)
[2021-06-08] MEDS: VANCOMYCIN INJ 1,750 MG in SODIUM CHLORIDE 0.9% 500 ML IV SCH ×2 (10:30→21:07)
[2021-06-08] MEDS: DEXMEDETOMIDINE 200 MCG in SODIUM CHLORIDE 0.9% 48 ML IV PRN ×4 (12:30→20:48)
[2021-06-08] MEDS ORDERED: LORazepam 0.5 MG TABLET PO ONE (12:59)
[2021-06-08] MEDS: LORazepam 1 MG TABLET PO SCH ×2 (13:30→20:56)
[2021-06-08] MEDS: MONTELUKAST 10 MG TABLET PO SCH (20:56)
[2021-06-09] MEDS: INSULIN LISPRO 100 UNIT/ML SUBCUT SCH ×5 (00:02→23:30)
[2021-06-09] MEDS: DEXMEDETOMIDINE 400 MCG in SODIUM CHLORIDE 0.9% 96 ML IV PRN ×3 (00:03→18:59)
[2021-06-09] MEDS: ALBUTEROL INHALER 18 GM INH SCH ×6 (03:45→22:06)
[2021-06-09 03:48] LABS: ABG HCO3 35.6 MMOL/L (20-26); ABG Oxygen Saturation 94.7 % (95-100); ABG PCO2 47.3 MM HG (35-48); ABG PH 7.494 (7.35-7.45); ABG PO2 70.6 MM HG (80-95)
[2021-06-09 05:48] LABS: Basophils % 0.2 % (0.0-0.8); Eosinophils # 0.1 10*3/uL (0.0-0.87); Eosinophils % 1.5 % (0.00-10.9); Hematocrit 29.3 VOL% (35.7-47.0); Hemoglobin 9.1 GM/DL (12.0-16.0); Immature Granulocytes % 2.4 %; Immature Granulocytes Absolute 0.13 #; Lymphocytes # 1.4 10*3/uL (1.4-4.0); Mean Corpuscular HGB Conc 31.1 GM/DL (32-36); Mean Corpuscular Volume 87.7 FL (87-102); Mean Platelet Volume 10.2 FL (9.6-12.0); Monocytes % 5.5 % (1.7-12.7); Neutrophils % 64.4 % (38.7-73.9); Platelet Count 128 T/CUMM (130-400); Red Blood Count 3.34 MC/CUMM (3.8-5.5); Red Cell Distribution Width 14.9 % (9.3-17.3); White Blood Count 5.5 T/CUMM (4-12)
[2021-06-09] MEDS: methylPREDNISolone SOD SUC 40 MG/1 ML VIAL IV SCH ×2 (05:52→18:16)
[2021-06-09 06:05] LABS: Albumin 2.1 G/DL (3.4-5.0); Bilirubin,Total 0.6 MG/DL (0.20-1.00); Calcium 8.9 MG/DL (8.5-10.1); Osmolality,Calculated 294.1 MOS/KG (273-304); Potassium 3.1 MMOL/L (3.5-5.1); Total Protein 5.9 G/DL (6.4-8.2)
[2021-06-09] MEDS ORDERED: MIDAZOLAM 2 MG/2 ML VIAL ONE (08:21)
[2021-06-09] MEDS: fentaNYL 50 MCG/HR PATCH TRANSDERM SCH (08:22)
[2021-06-09] MEDS: LORazepam 1 MG TABLET PO SCH ×2 (08:23→21:56)
[2021-06-09] MEDS: MENTHOL/ZINC OXIDE OINT 71 GM JAR TOP SCH ×2 (08:23→21:53)
[2021-06-09] MEDS ORDERED: fentaNYL 100 MCG/2 ML VIAL ONE (08:23)
[2021-06-09] MEDS: METOPROLOL TARTRATE 50 MG TABLET PO SCH ×2 (08:24→21:52)
[2021-06-09] MEDS: FUROSEMIDE 40 MG/4 ML VIAL IV SCH (08:24)
[2021-06-09] MEDS: POLYETHYLENE GLYCOL POWDER 17 GM PACK PO SCH (08:25)
[2021-06-09] MEDS: FAMOTIDINE 20 MG TABLET PO SCH ×2 (08:26→21:52)
[2021-06-09] MEDS: QUEtiapine 25 MG TABLET PO SCH ×2 (08:27→21:51)
[2021-06-09] MEDS: ASCORBIC ACID 500 MG TABLET PO SCH ×2 (08:27→21:51)
[2021-06-09] MEDS: CHOLECALCIFEROL 1,000 UNIT TABLET PO SCH (08:28)
[2021-06-09] MEDS: ZINC GLUCONATE 50 MG TABLET PO SCH (08:28)
[2021-06-09] MEDS ORDERED: INSULIN GLARGINE 100 UNIT/ML SUBCUT SCH ×2 (09:00)
[2021-06-09] MEDS ORDERED: SEVOFLURANE 1 UNIT/15 MINUTE INH ONE ×2 (09:40→09:43)
[2021-06-09] MEDS ORDERED: ROCURONIUM 50 MG/5 ML VIAL IV ONE (09:40)
[2021-06-09] MEDS ORDERED: ceFAZolin 1,000 MG VIAL ONE (10:00)
[2021-06-09] MEDS: LEVOFLOXACIN INJ 750 MG/150 ML PREMIX IV SCH (10:12)
[2021-06-09] MEDS: VANCOMYCIN INJ 1,750 MG in SODIUM CHLORIDE 0.9% 500 ML IV SCH ×2 (12:03→21:52)
[2021-06-09] MEDS: POTASSIUM BICARB EFFERVESCENT 20 MEQ TAB.EFF PER TUBE PRN (18:32)
[2021-06-09] MEDS: MONTELUKAST 10 MG TABLET PO SCH (21:56)
[2021-06-10] MEDS: DEXMEDETOMIDINE 400 MCG in SODIUM CHLORIDE 0.9% 96 ML IV PRN ×5 (00:23→22:36)
[2021-06-10] MEDS: ALBUTEROL INHALER 18 GM INH SCH ×6 (03:49→22:36)
[2021-06-10 04:24] LABS: ABG Base Excess 9.6 MMOL/L (-2.5-2.5); ABG HCO3 33.3 MMOL/L (20-26); ABG Oxygen Saturation 98.2 % (95-100); ABG PCO2 45.5 MM HG (35-48); ABG PH 7.484 (7.35-7.45); ABG TCO2 31.3 MMOL/L (23-27)
[2021-06-10 04:48] LABS: Basophils % 0.2 % (0.0-0.8); Eosinophils % 0.6 % (0.00-10.9); Hematocrit 28.7 VOL% (35.7-47.0); Hemoglobin 8.9 GM/DL (12.0-16.0); Immature Granulocytes % 1.5 %; Immature Granulocytes Absolute 0.09 #; Lymphocytes # 1.2 10*3/uL (1.4-4.0); Lymphocytes % 18.9 % (21.3-54.2); Mean Platelet Volume 10.8 FL (9.6-12.0); Monocytes % 5.8 % (1.7-12.7); Platelet Count 132 T/CUMM (130-400); Red Blood Count 3.26 MC/CUMM (3.8-5.5); Red Cell Distribution Width 15.2 % (9.3-17.3); White Blood Count 6.2 T/CUMM (4-12)
[2021-06-10 05:04] LABS: Calcium 8.6 MG/DL (8.5-10.1); Osmolality,Calculated 287.7 MOS/KG (273-304); Potassium 3.3 MMOL/L (3.5-5.1)
[2021-06-10] MEDS: INSULIN LISPRO 100 UNIT/ML SUBCUT SCH ×3 (05:30→18:44)
[2021-06-10] MEDS: methylPREDNISolone SOD SUC 40 MG/1 ML VIAL IV SCH ×2 (05:31→18:46)
[2021-06-10] MEDS: POTASSIUM BICARB EFFERVESCENT 20 MEQ TAB.EFF PER TUBE PRN (05:34)
[2021-06-10] MEDS: ASCORBIC ACID 500 MG TABLET PO SCH ×2 (09:16→21:36)
[2021-06-10] MEDS: ZINC GLUCONATE 50 MG TABLET PO SCH (09:16)
[2021-06-10] MEDS: CHOLECALCIFEROL 1,000 UNIT TABLET PO SCH (09:16)
[2021-06-10] MEDS: QUEtiapine 25 MG TABLET PO SCH ×2 (09:16→21:36)
[2021-06-10] MEDS: METOPROLOL TARTRATE 50 MG TABLET PO SCH ×2 (09:16→21:36)
[2021-06-10] MEDS: FUROSEMIDE 40 MG/4 ML VIAL IV SCH (09:17)
[2021-06-10] MEDS: FAMOTIDINE 20 MG TABLET PO SCH ×2 (09:17→21:35)
[2021-06-10] MEDS: LORazepam 1 MG TABLET PO SCH ×2 (09:17→21:36)
[2021-06-10] MEDS: LEVOFLOXACIN INJ 750 MG/150 ML PREMIX IV SCH (09:18)
[2021-06-10] MEDS: VANCOMYCIN INJ 1,750 MG in SODIUM CHLORIDE 0.9% 500 ML IV SCH ×2 (10:42→22:05)
[2021-06-10] MEDS ORDERED: INSULIN GLARGINE 100 UNIT/ML SUBCUT ONE (10:51)
[2021-06-10] MEDS: MENTHOL/ZINC OXIDE OINT 71 GM JAR TOP SCH ×2 (13:41→21:37)
[2021-06-10] MEDS: INSULIN GLARGINE 100 UNIT/ML SUBCUT SCH (18:41)
[2021-06-10] MEDS: POLYETHYLENE GLYCOL POWDER 17 GM PACK PO SCH (18:42)
[2021-06-10] MEDS ORDERED: INSULIN GLARGINE 100 UNIT/ML SUBCUT SCH (21:00)
[2021-06-10] MEDS: MONTELUKAST 10 MG TABLET PO SCH (21:36)
[2021-06-11] MEDS: INSULIN LISPRO 100 UNIT/ML SUBCUT SCH ×4 (00:09→17:35)
[2021-06-11] MEDS: ALBUTEROL INHALER 18 GM INH SCH ×6 (03:19→22:27)
[2021-06-11 03:29] LABS: ABG Base Excess 8.4 MMOL/L (-2.5-2.5); ABG HCO3 32.2 MMOL/L (20-26); ABG Oxygen Saturation 98.8 % (95-100); ABG PCO2 45.8 MM HG (35-48); ABG PH 7.468 (7.35-7.45); ABG TCO2 30.2 MMOL/L (23-27)
[2021-06-11] MEDS: DEXMEDETOMIDINE 400 MCG in SODIUM CHLORIDE 0.9% 96 ML IV PRN ×4 (04:01→21:33)
[2021-06-11 04:54] LABS: Basophils % 0.2 % (0.0-0.8); Eosinophils # 0.1 10*3/uL (0.0-0.87); Eosinophils % 1.1 % (0.00-10.9); Hematocrit 28.9 VOL% (35.7-47.0); Hemoglobin 9.2 GM/DL (12.0-16.0); Immature Granulocytes % 1.8 %; Lymphocytes # 0.9 10*3/uL (1.4-4.0); Mean Corpuscular HGB Conc 31.8 GM/DL (32-36); Mean Corpuscular Volume 88.4 FL (87-102); Mean Platelet Volume 10.4 FL (9.6-12.0); Monocytes % 8.2 % (1.7-12.7); Neutrophils % 71.7 % (38.7-73.9); Platelet Count 143 T/CUMM (130-400); Red Blood Count 3.27 MC/CUMM (3.8-5.5); Red Cell Distribution Width 15.6 % (9.3-17.3); White Blood Count 5.5 T/CUMM (4-12)
[2021-06-11 05:13] LABS: Calcium 8.4 MG/DL (8.5-10.1); Osmolality,Calculated 291.4 MOS/KG (273-304)
[2021-06-11] MEDS ORDERED: POTASSIUM CHLORIDE RIDER 10 MEQ/100 ML PREMIX IV PRN (05:54)
[2021-06-11] MEDS: POTASSIUM CHLORIDE RIDER 20 MEQ/100 ML PREMIX IV PRN ×2 (06:08→06:49)
[2021-06-11] MEDS: methylPREDNISolone SOD SUC 40 MG/1 ML VIAL IV SCH ×2 (06:19→17:44)
[2021-06-11] MEDS: CHOLECALCIFEROL 1,000 UNIT TABLET PO SCH (09:28)
[2021-06-11] MEDS: METOPROLOL TARTRATE 50 MG TABLET PO SCH ×2 (09:28→22:16)
[2021-06-11] MEDS: ZINC GLUCONATE 50 MG TABLET PO SCH (09:28)
[2021-06-11] MEDS: ASCORBIC ACID 500 MG TABLET PO SCH ×2 (09:28→22:14)
[2021-06-11] MEDS: QUEtiapine 25 MG TABLET PO SCH ×2 (09:28→22:16)
[2021-06-11] MEDS: INSULIN GLARGINE 100 UNIT/ML SUBCUT SCH (09:28)
[2021-06-11] MEDS: FAMOTIDINE 20 MG TABLET PO SCH ×2 (09:28→22:15)
[2021-06-11] MEDS: LORazepam 1 MG TABLET PO SCH ×2 (09:28→22:15)
[2021-06-11] MEDS: LEVOFLOXACIN INJ 750 MG/150 ML PREMIX IV SCH (09:29)
[2021-06-11] MEDS: MENTHOL/ZINC OXIDE OINT 71 GM JAR TOP SCH ×2 (10:28→22:20)
[2021-06-11] MEDS: POLYETHYLENE GLYCOL POWDER 17 GM PACK PO SCH (10:29)
[2021-06-11] MEDS: FUROSEMIDE 40 MG/4 ML VIAL IV SCH (10:29)
[2021-06-11] MEDS: VANCOMYCIN INJ 1,750 MG in SODIUM CHLORIDE 0.9% 500 ML IV SCH ×2 (10:34→22:25)
[2021-06-11] MEDS ORDERED: INSULIN GLARGINE 100 UNIT/ML SUBCUT SCH (21:00)
[2021-06-11] MEDS ORDERED: INSULIN GLARGINE 100 UNIT/ML SUBCUT ONE (22:00)
[2021-06-11] MEDS: MONTELUKAST 10 MG TABLET PO SCH (22:14)
[2021-06-11] MEDS: INSULIN GLARGINE 100 UNIT/ML SUBCUT ONE ×2 (22:14→23:00)
[2021-06-12] MEDS: INSULIN LISPRO 100 UNIT/ML SUBCUT SCH ×5 (01:08→23:52)
[2021-06-12] MEDS: DEXMEDETOMIDINE 400 MCG in SODIUM CHLORIDE 0.9% 96 ML IV PRN ×3 (03:00→15:06)
[2021-06-12] MEDS: ALBUTEROL INHALER 18 GM INH SCH ×5 (03:00→18:22)
[2021-06-12 03:54] LABS: ABG Base Excess 6.4 MMOL/L (-2.5-2.5); ABG HCO3 30.3 MMOL/L (20-26); ABG Oxygen Saturation 99.2 % (95-100); ABG PCO2 45.5 MM HG (35-48); ABG PH 7.445 (7.35-7.45); ABG TCO2 28.9 MMOL/L (23-27)
[2021-06-12 05:10] LABS: Basophils % 0.2 % (0.0-0.8); Eosinophils % 0.9 % (0.00-10.9); Hematocrit 27.8 VOL% (35.7-47.0); Hemoglobin 8.5 GM/DL (12.0-16.0); Immature Granulocytes % 1.6 %; Immature Granulocytes Absolute 0.07 #; Lymphocytes # 1.2 10*3/uL (1.4-4.0); Lymphocytes % 25.6 % (21.3-54.2); Mean Corpuscular HGB Conc 30.6 GM/DL (32-36); Mean Corpuscular Volume 88.8 FL (87-102); Mean Platelet Volume 10.4 FL (9.6-12.0); Monocytes % 8.2 % (1.7-12.7); Neutrophils % 63.5 % (38.7-73.9); Platelet Count 161 T/CUMM (130-400); Red Blood Count 3.13 MC/CUMM (3.8-5.5); Red Cell Distribution Width 15.9 % (9.3-17.3); White Blood Count 4.5 T/CUMM (4-12)
[2021-06-12 05:18] LABS: Calcium 8.9 MG/DL (8.5-10.1); Osmolality,Calculated 296.1 MOS/KG (273-304); Potassium 3.7 MMOL/L (3.5-5.1)
[2021-06-12] MEDS: POTASSIUM CHLORIDE RIDER 20 MEQ/100 ML PREMIX IV PRN (05:45)
[2021-06-12] MEDS: methylPREDNISolone SOD SUC 40 MG/1 ML VIAL IV SCH ×2 (05:46→18:22)
[2021-06-12] MEDS ORDERED: INSULIN GLARGINE 100 UNIT/ML SUBCUT SCH ×2 (09:00)
[2021-06-12] MEDS: QUEtiapine 25 MG TABLET PO SCH ×2 (09:48→20:46)
[2021-06-12] MEDS: ZINC GLUCONATE 50 MG TABLET PO SCH (09:48)
[2021-06-12] MEDS: ASCORBIC ACID 500 MG TABLET PO SCH ×2 (09:48→20:46)
[2021-06-12] MEDS: METOPROLOL TARTRATE 50 MG TABLET PO SCH ×2 (09:48→20:46)
[2021-06-12] MEDS: POLYETHYLENE GLYCOL POWDER 17 GM PACK PO SCH (09:48)
[2021-06-12] MEDS: FONDAPARINUX 2.5 MG/0.5 ML SYRINGE SUBCUT SCH (09:48)
[2021-06-12] MEDS: CHOLECALCIFEROL 1,000 UNIT TABLET PO SCH (09:49)
[2021-06-12] MEDS: MENTHOL/ZINC OXIDE OINT 71 GM JAR TOP SCH ×2 (09:49→20:46)
[2021-06-12] MEDS: FAMOTIDINE 20 MG TABLET PO SCH ×2 (09:49→20:45)
[2021-06-12] MEDS: LEVOFLOXACIN INJ 750 MG/150 ML PREMIX IV SCH (09:51)
[2021-06-12] MEDS: LORazepam 1 MG TABLET PO SCH ×2 (09:56→20:47)
[2021-06-12] MEDS: VANCOMYCIN INJ 2,000 MG in SODIUM CHLORIDE 0.9% 500 ML IV SCH ×2 (10:07→22:34)
[2021-06-12] MEDS: MONTELUKAST 10 MG TABLET PO SCH (20:46)
[2021-06-12] MEDS: HYDROmorphone 2 MG/1 ML VIAL IV PRN (23:23)
[2021-06-13] MEDS: ALBUTEROL INHALER 18 GM INH SCH ×6 (00:15→19:45)
[2021-06-13] MEDS: DEXMEDETOMIDINE 400 MCG in SODIUM CHLORIDE 0.9% 96 ML IV PRN ×3 (01:26→19:50)
[2021-06-13 03:45] LABS: ABG Base Excess 4.5 MMOL/L (-2.5-2.5); ABG HCO3 28.5 MMOL/L (20-26); ABG PCO2 47.5 MM HG (35-48); ABG PH 7.408 (7.35-7.45); ABG TCO2 27.1 MMOL/L (23-27)
[2021-06-13 04:04] LABS: Basophils % 0.2 % (0.0-0.8); Eosinophils % 0.3 % (0.00-10.9); Hematocrit 27.2 VOL% (35.7-47.0); Hemoglobin 8.3 GM/DL (12.0-16.0); Immature Granulocytes % 1.1 %; Immature Granulocytes Absolute 0.07 #; Lymphocytes % 15.5 % (21.3-54.2); Mean Corpuscular HGB Conc 30.5 GM/DL (32-36); Mean Corpuscular Volume 90.7 FL (87-102); Monocytes % 6.6 % (1.7-12.7); Neutrophils % 76.3 % (38.7-73.9); Platelet Count 171 T/CUMM (130-400); Red Cell Distribution Width 15.9 % (9.3-17.3); White Blood Count 6.2 T/CUMM (4-12)
[2021-06-13 04:21] LABS: Calcium 8.5 MG/DL (8.5-10.1); Osmolality,Calculated 294.3 MOS/KG (273-304); Potassium 3.9 MMOL/L (3.5-5.1)
[2021-06-13] MEDS: INSULIN LISPRO 100 UNIT/ML SUBCUT SCH ×4 (06:07→20:12)
[2021-06-13] MEDS: methylPREDNISolone SOD SUC 40 MG/1 ML VIAL IV SCH ×2 (06:07→17:27)
[2021-06-13] MEDS: INSULIN GLARGINE 100 UNIT/ML SUBCUT SCH (09:27)
[2021-06-13] MEDS: CHOLECALCIFEROL 1,000 UNIT TABLET PO SCH (09:27)
[2021-06-13] MEDS: ASCORBIC ACID 500 MG TABLET PO SCH ×2 (09:27→20:11)
[2021-06-13] MEDS: FAMOTIDINE 20 MG TABLET PO SCH ×2 (09:28→21:12)
[2021-06-13] MEDS: METOPROLOL TARTRATE 50 MG TABLET PO SCH ×2 (09:28→20:12)
[2021-06-13] MEDS: QUEtiapine 25 MG TABLET PO SCH ×2 (09:28→20:11)
[2021-06-13] MEDS: POTASSIUM CHLORIDE 20 MEQ TABLET PO PRN (09:28)
[2021-06-13] MEDS: POLYETHYLENE GLYCOL POWDER 17 GM PACK PO SCH (09:28)
[2021-06-13] MEDS: ZINC GLUCONATE 50 MG TABLET PO SCH (09:28)
[2021-06-13] MEDS: FONDAPARINUX 2.5 MG/0.5 ML SYRINGE SUBCUT SCH (09:28)
[2021-06-13] MEDS: MENTHOL/ZINC OXIDE OINT 71 GM JAR TOP SCH ×2 (09:29→20:12)
[2021-06-13] MEDS: LEVOFLOXACIN INJ 750 MG/150 ML PREMIX IV SCH (09:33)
[2021-06-13] MEDS: LORazepam 1 MG TABLET PO SCH ×2 (09:39→20:11)
[2021-06-13] MEDS: VANCOMYCIN INJ 2,000 MG in SODIUM CHLORIDE 0.9% 500 ML IV SCH ×2 (09:55→23:01)
[2021-06-13] MEDS: MONTELUKAST 10 MG TABLET PO SCH (20:11)
[2021-06-14] MEDS: HYDROmorphone 2 MG/1 ML VIAL IV PRN ×2 (00:30→13:18)
[2021-06-14] MEDS: INSULIN LISPRO 100 UNIT/ML SUBCUT SCH ×7 (01:04→23:47)
[2021-06-14] MEDS: ALBUTEROL INHALER 18 GM INH SCH ×7 (01:04→22:25)
[2021-06-14 04:06] LABS: Eosinophils % 0.4 % (0.00-10.9); Hematocrit 26.5 VOL% (35.7-47.0); Immature Granulocytes % 0.7 %; Immature Granulocytes Absolute 0.04 #; Lymphocytes % 17.8 % (21.3-54.2); Mean Corpuscular HGB Conc 30.2 GM/DL (32-36); Mean Corpuscular Volume 91.4 FL (87-102); Monocytes % 6.1 % (1.7-12.7); Platelet Count 170 T/CUMM (130-400); Red Cell Distribution Width 16.1 % (9.3-17.3); White Blood Count 5.6 T/CUMM (4-12)
[2021-06-14 04:19] LABS: Calcium 8.7 MG/DL (8.5-10.1); Osmolality,Calculated 293.3 MOS/KG (273-304); Potassium 3.8 MMOL/L (3.5-5.1)
[2021-06-14 04:20] LABS: ABG Oxygen Saturation 99.1 % (95-100); ABG PCO2 49.5 MM HG (35-48); ABG TCO2 28.4 MMOL/L (23-27); Allen Test Positive; Pt O2 Delivery Device Ventilator
[2021-06-14] MEDS: methylPREDNISolone SOD SUC 40 MG/1 ML VIAL IV SCH ×2 (06:29→17:23)
[2021-06-14] MEDS: DEXMEDETOMIDINE 400 MCG in SODIUM CHLORIDE 0.9% 96 ML IV PRN (08:19)
[2021-06-14] MEDS: FONDAPARINUX 2.5 MG/0.5 ML SYRINGE SUBCUT SCH (09:52)
[2021-06-14] MEDS: QUEtiapine 25 MG TABLET PO SCH ×2 (09:52→20:13)
[2021-06-14] MEDS: POTASSIUM CHLORIDE 20 MEQ TABLET PO PRN (09:52)
[2021-06-14] MEDS: ASCORBIC ACID 500 MG TABLET PO SCH ×2 (09:52→20:13)
[2021-06-14] MEDS: ZINC GLUCONATE 50 MG TABLET PO SCH (09:52)
[2021-06-14] MEDS: INSULIN GLARGINE 100 UNIT/ML SUBCUT SCH (09:52)
[2021-06-14] MEDS: FAMOTIDINE 20 MG TABLET PO SCH ×2 (09:53→20:13)
[2021-06-14] MEDS: METOPROLOL TARTRATE 50 MG TABLET PO SCH ×2 (09:53→20:13)
[2021-06-14] MEDS: LORazepam 1 MG TABLET PO SCH ×2 (09:53→20:12)
[2021-06-14] MEDS: MENTHOL/ZINC OXIDE OINT 71 GM JAR TOP SCH ×2 (09:53→20:14)
[2021-06-14] MEDS: CHOLECALCIFEROL 1,000 UNIT TABLET PO SCH (09:53)
[2021-06-14] MEDS: POLYETHYLENE GLYCOL POWDER 17 GM PACK PO SCH (09:53)
[2021-06-14] MEDS: LEVOFLOXACIN INJ 750 MG/150 ML PREMIX IV SCH (09:55)
[2021-06-14] MEDS: VANCOMYCIN INJ 2,000 MG in SODIUM CHLORIDE 0.9% 500 ML IV SCH ×2 (10:53→22:24)
[2021-06-14 18:56] LABS: Bacteria,Urine Many /HPF (Few); Bilirubin,Urine Negative (Negative); Blood, Urine Small mg/dL (Negative); Glucose,Urine (UA) 50 mg/dL (Negative); Ketones,Urine Negative (Negative); Mucus,Urine Occasional /LPF (Occasional); Nitrite,Urine Negative (Negative); Protein,Urine Negative; RBC,Urine 55 /HPF (0-4); Squamous Epithelial Cell,Urine Occasional /HPF (0-10); Urine Appearance CLOUDY (Clear); Urine Color Yellow (Yellow); Urine Specific Gravity 1.009 (1.001-1.035); Urine Urobilinogen < 2.0 EU/DL (0.2-1.0)
[2021-06-14] MEDS: MONTELUKAST 10 MG TABLET PO SCH (20:13)
[2021-06-14] MEDS: MELATONIN 3 MG TABLET PO PRN (23:48)
[2021-06-15] MEDS: HYDROmorphone 2 MG/1 ML VIAL IV PRN ×3 (00:33→23:40)
[2021-06-15 03:00] LABS: ABG Base Excess 7.5 MMOL/L (-2.5-2.5); ABG HCO3 33.2 MMOL/L (20-26); ABG Oxygen Saturation 98.2 % (95-100); ABG PCO2 52.7 MM HG (35-48); ABG PH 7.417 (7.35-7.45); ABG PO2 118.2 MM HG (80-95); ABG TCO2 34.8 MMOL/L (23-27)
[2021-06-15] MEDS: ALBUTEROL INHALER 18 GM INH SCH ×5 (03:34→20:40)
[2021-06-15] MEDS: INSULIN LISPRO 100 UNIT/ML SUBCUT SCH ×5 (03:34→20:40)
[2021-06-15 04:59] LABS: Basophils % 0.4 % (0.0-0.8); Eosinophils % 0.3 % (0.00-10.9); Hematocrit 34.2 VOL% (35.7-47.0); Hemoglobin 10.3 GM/DL (12.0-16.0); Immature Granulocytes % 1.9 %; Immature Granulocytes Absolute 0.13 #; Lymphocytes # 1.1 10*3/uL (1.4-4.0); Lymphocytes % 15.7 % (21.3-54.2); Mean Corpuscular HGB Conc 30.1 GM/DL (32-36); Mean Corpuscular Volume 93.4 FL (87-102); Mean Platelet Volume 11.9 FL (9.6-12.0); Monocytes % 7.7 % (1.7-12.7); Platelet Count 174 T/CUMM (130-400); Red Blood Count 3.66 MC/CUMM (3.8-5.5); Red Cell Distribution Width 16.5 % (9.3-17.3); White Blood Count 6.9 T/CUMM (4-12)
[2021-06-15 05:08] LABS: Potassium 3.7 MMOL/L (3.5-5.1)
[2021-06-15 06:11] LABS: Hypochromasia 1+; Microcytosis 1+; Ovalocytes Few; Platelet Estimate Adequate
[2021-06-15] MEDS ORDERED: LORazepam 2 MG/1 ML VIAL IV ONE (06:13)
[2021-06-15] MEDS: methylPREDNISolone SOD SUC 40 MG/1 ML VIAL IV SCH ×2 (06:14→19:04)
[2021-06-15] MEDS: POTASSIUM CHLORIDE 20 MEQ TABLET PO PRN (06:28)
[2021-06-15] MEDS: LEVOFLOXACIN INJ 750 MG/150 ML PREMIX IV SCH (08:33)
[2021-06-15] MEDS: INSULIN GLARGINE 100 UNIT/ML SUBCUT SCH (08:33)
[2021-06-15] MEDS: FONDAPARINUX 2.5 MG/0.5 ML SYRINGE SUBCUT SCH (08:33)
[2021-06-15] MEDS: LORazepam 1 MG TABLET PO SCH ×2 (08:33→20:39)
[2021-06-15] MEDS: QUEtiapine 25 MG TABLET PO SCH ×2 (08:34→20:39)
[2021-06-15] MEDS: MENTHOL/ZINC OXIDE OINT 71 GM JAR TOP SCH ×2 (08:34→20:58)
[2021-06-15] MEDS: CHOLECALCIFEROL 1,000 UNIT TABLET PO SCH (08:34)
[2021-06-15] MEDS: FAMOTIDINE 20 MG TABLET PO SCH ×2 (08:34→20:39)
[2021-06-15] MEDS: ZINC GLUCONATE 50 MG TABLET PO SCH (08:34)
[2021-06-15] MEDS: ASCORBIC ACID 500 MG TABLET PO SCH ×2 (08:34→20:39)
[2021-06-15] MEDS: POLYETHYLENE GLYCOL POWDER 17 GM PACK PO SCH (08:34)
[2021-06-15] MEDS: METOPROLOL TARTRATE 50 MG TABLET PO SCH ×2 (08:34→20:39)
[2021-06-15] MEDS: MONTELUKAST 10 MG TABLET PO SCH (20:39)
[2021-06-16] MEDS: ALBUTEROL INHALER 18 GM INH SCH ×7 (00:24→22:27)
[2021-06-16] MEDS: INSULIN LISPRO 100 UNIT/ML SUBCUT SCH ×6 (00:25→20:01)
[2021-06-16] MEDS ORDERED: LORazepam 2 MG/1 ML VIAL IV ONE (01:29)
[2021-06-16 03:59] LABS: ABG Base Excess 8.1 MMOL/L (-2.5-2.5); ABG HCO3 31.9 MMOL/L (20-26); ABG Oxygen Saturation 98.8 % (95-100); ABG PCO2 46.6 MM HG (35-48); ABG PH 7.459 (7.35-7.45); ABG TCO2 29.9 MMOL/L (23-27)
[2021-06-16 04:52] LABS: Calcium 8.8 MG/DL (8.5-10.1); Potassium 4.2 MMOL/L (3.5-5.1)
[2021-06-16 06:05] LABS: Basophils % 0.2 % (0.0-0.8); Eosinophils % 0.2 % (0.00-10.9); Hematocrit 30.9 VOL% (35.7-47.0); Hemoglobin 9.8 GM/DL (12.0-16.0); Immature Granulocytes % 1.8 %; Immature Granulocytes Absolute 0.12 #; Lymphocytes # 1.4 10*3/uL (1.4-4.0); Lymphocytes % 21.6 % (21.3-54.2); Mean Corpuscular HGB Conc 31.7 GM/DL (32-36); Mean Corpuscular Volume 87.5 FL (87-102); Mean Platelet Volume 9.3 FL (9.6-12.0); Monocytes % 8.8 % (1.7-12.7); Neutrophils % 67.4 % (38.7-73.9); Red Blood Count 3.53 MC/CUMM (3.8-5.5); Red Cell Distribution Width 16.6 % (9.3-17.3); White Blood Count 6.6 T/CUMM (4-12)
[2021-06-16 06:17] LABS: Platelet Count 248 T/CUMM (130-400)
[2021-06-16] MEDS: methylPREDNISolone SOD SUC 40 MG/1 ML VIAL IV SCH (06:30)
[2021-06-16] MEDS: METOPROLOL TARTRATE 5 MG/5 ML VIAL IV PRN (06:42)
[2021-06-16] MEDS: POLYETHYLENE GLYCOL POWDER 17 GM PACK PO SCH (08:19)
[2021-06-16] MEDS: INSULIN GLARGINE 100 UNIT/ML SUBCUT SCH (08:28)
[2021-06-16] MEDS: ZINC GLUCONATE 50 MG TABLET PO SCH (08:29)
[2021-06-16] MEDS: ASCORBIC ACID 500 MG TABLET PO SCH ×2 (08:29→20:02)
[2021-06-16] MEDS: CHOLECALCIFEROL 1,000 UNIT TABLET PO SCH (08:29)
[2021-06-16] MEDS: QUEtiapine 25 MG TABLET PO SCH ×2 (08:29→20:02)
[2021-06-16] MEDS: METOPROLOL TARTRATE 50 MG TABLET PO SCH ×2 (08:29→20:02)
[2021-06-16] MEDS: FONDAPARINUX 2.5 MG/0.5 ML SYRINGE SUBCUT SCH (08:30)
[2021-06-16] MEDS: FAMOTIDINE 20 MG TABLET PO SCH ×2 (08:30→20:02)
[2021-06-16] MEDS: LORazepam 1 MG TABLET PO SCH ×2 (08:33→20:02)
[2021-06-16] MEDS: MENTHOL/ZINC OXIDE OINT 71 GM JAR TOP SCH ×2 (11:52→20:02)
[2021-06-16] MEDS: MONTELUKAST 10 MG TABLET PO SCH (20:02)
[2021-06-16] MEDS: HYDROmorphone 2 MG/1 ML VIAL IV PRN (22:27)
[2021-06-17] MEDS: INSULIN LISPRO 100 UNIT/ML SUBCUT SCH ×6 (00:31→20:55)
[2021-06-17] MEDS: METOPROLOL TARTRATE 5 MG/5 ML VIAL IV PRN ×3 (01:06→18:06)
[2021-06-17] MEDS: ALBUTEROL INHALER 18 GM INH SCH ×3 (02:04→16:17)
[2021-06-17] MEDS: LORazepam 2 MG/1 ML VIAL IV PRN (02:43)
[2021-06-17] MEDS: HYDROmorphone 2 MG/1 ML VIAL IV PRN ×2 (02:44→11:37)
[2021-06-17 04:50] LABS: ABG Base Excess 8.9 MMOL/L (-2.5-2.5); ABG HCO3 32.6 MMOL/L (20-26); ABG Oxygen Saturation 97.4 % (95-100); ABG PCO2 52.1 MM HG (35-48); ABG PH 7.434 (7.35-7.45); ABG PO2 94.9 MM HG (80-95); ABG TCO2 30.6 MMOL/L (23-27)
[2021-06-17 05:14] LABS: Basophils % 0.3 % (0.0-0.8); Eosinophils # 0.1 10*3/uL (0.0-0.87); Eosinophils % 0.7 % (0.00-10.9); Hematocrit 32.3 VOL% (35.7-47.0); Hemoglobin 10.1 GM/DL (12.0-16.0); Immature Granulocytes % 2.9 %; Lymphocytes # 1.9 10*3/uL (1.4-4.0); Lymphocytes % 26.8 % (21.3-54.2); Mean Corpuscular HGB Conc 31.3 GM/DL (32-36); Mean Corpuscular Volume 88.7 FL (87-102); Mean Platelet Volume 9.5 FL (9.6-12.0); Monocytes % 9.8 % (1.7-12.7); Neutrophils % 59.5 % (38.7-73.9); Platelet Count 248 T/CUMM (130-400); Red Blood Count 3.64 MC/CUMM (3.8-5.5); Red Cell Distribution Width 16.9 % (9.3-17.3); White Blood Count 6.9 T/CUMM (4-12)
[2021-06-17 05:42] LABS: Osmolality,Calculated 281.5 MOS/KG (273-304); Potassium 3.3 MMOL/L (3.5-5.1)
[2021-06-17] MEDS: POTASSIUM BICARB EFFERVESCENT 20 MEQ TAB.EFF PER TUBE PRN ×2 (06:23→08:08)
[2021-06-17] MEDS: ZINC GLUCONATE 50 MG TABLET PO SCH (08:07)
[2021-06-17] MEDS: predniSONE 20 MG TABLET PO SCH (08:07)
[2021-06-17] MEDS: LORazepam 1 MG TABLET PO SCH ×2 (08:07→20:55)
[2021-06-17] MEDS: METOPROLOL TARTRATE 50 MG TABLET PO SCH ×2 (08:07→20:56)
[2021-06-17] MEDS: FAMOTIDINE 20 MG TABLET PO SCH ×2 (08:08→20:56)
[2021-06-17] MEDS: QUEtiapine 25 MG TABLET PO SCH ×2 (08:08→20:56)
[2021-06-17] MEDS: CHOLECALCIFEROL 1,000 UNIT TABLET PO SCH (08:08)
[2021-06-17] MEDS: INSULIN GLARGINE 100 UNIT/ML SUBCUT SCH (08:08)
[2021-06-17] MEDS: ASCORBIC ACID 500 MG TABLET PO SCH ×2 (08:08→20:56)
[2021-06-17] MEDS: FONDAPARINUX 2.5 MG/0.5 ML SYRINGE SUBCUT SCH (08:09)
[2021-06-17] MEDS: POLYETHYLENE GLYCOL POWDER 17 GM PACK PO SCH (08:09)
[2021-06-17] MEDS: MENTHOL/ZINC OXIDE OINT 71 GM JAR TOP SCH ×2 (08:09→20:55)
[2021-06-17] MEDS ORDERED: DIGOXIN 0.5 MG/2 ML AMP IV ONE (11:35)
[2021-06-17] MEDS: DIGOXIN 0.125 MG TABLET PO SCH (16:17)
[2021-06-17] MEDS: ALBUTEROL/IPRATROPIUM 3 ML NEB RESP TX SCH (19:35)
[2021-06-17] MEDS: MONTELUKAST 10 MG TABLET PO SCH (21:08)
[2021-06-18] MEDS: INSULIN LISPRO 100 UNIT/ML SUBCUT SCH ×6 (00:46→21:25)
[2021-06-18] MEDS: METOPROLOL TARTRATE 5 MG/5 ML VIAL IV PRN ×2 (00:47→05:59)
[2021-06-18] MEDS: LORazepam 2 MG/1 ML VIAL IV PRN (00:47)
[2021-06-18] MEDS: ALBUTEROL/IPRATROPIUM 3 ML NEB RESP TX SCH ×4 (02:20→20:33)
[2021-06-18 03:41] LABS: ABG HCO3 34.8 MMOL/L (20-26); ABG Oxygen Saturation 99.3 % (95-100); ABG PCO2 47.9 MM HG (35-48); ABG PH 7.485 (7.35-7.45); ABG TCO2 32.5 MMOL/L (23-27)
[2021-06-18 03:53] LABS: Basophils % 0.3 % (0.0-0.8); Eosinophils % 0.5 % (0.00-10.9); Hematocrit 31.8 VOL% (35.7-47.0); Hemoglobin 10.1 GM/DL (12.0-16.0); Immature Granulocytes % 2.3 %; Immature Granulocytes Absolute 0.13 #; Lymphocytes # 1.5 10*3/uL (1.4-4.0); Lymphocytes % 25.9 % (21.3-54.2); Mean Corpuscular HGB Conc 31.8 GM/DL (32-36); Mean Corpuscular Volume 89.6 FL (87-102); Mean Platelet Volume 9.5 FL (9.6-12.0); Monocytes % 10.6 % (1.7-12.7); Neutrophils % 60.4 % (38.7-73.9); Platelet Count 256 T/CUMM (130-400); Red Blood Count 3.55 MC/CUMM (3.8-5.5); White Blood Count 5.8 T/CUMM (4-12)
[2021-06-18 04:15] LABS: Calcium 9.1 MG/DL (8.5-10.1); Osmolality,Calculated 278.7 MOS/KG (273-304); Potassium 3.7 MMOL/L (3.5-5.1)
[2021-06-18] MEDS: HYDROmorphone 2 MG/1 ML VIAL IV PRN (05:06)
[2021-06-18] MEDS: POLYETHYLENE GLYCOL POWDER 17 GM PACK PO SCH (08:27)
[2021-06-18] MEDS: QUEtiapine 25 MG TABLET PO SCH ×2 (08:33→21:24)
[2021-06-18] MEDS: ASCORBIC ACID 500 MG TABLET PO SCH ×2 (08:33→21:25)
[2021-06-18] MEDS: CHOLECALCIFEROL 1,000 UNIT TABLET PO SCH (08:33)
[2021-06-18] MEDS: ZINC GLUCONATE 50 MG TABLET PO SCH (08:33)
[2021-06-18] MEDS: FONDAPARINUX 2.5 MG/0.5 ML SYRINGE SUBCUT SCH (08:34)
[2021-06-18] MEDS: FAMOTIDINE 20 MG TABLET PO SCH ×2 (08:34→21:24)
[2021-06-18] MEDS: INSULIN GLARGINE 100 UNIT/ML SUBCUT SCH (08:34)
[2021-06-18] MEDS: predniSONE 20 MG TABLET PO SCH (08:34)
[2021-06-18] MEDS: LORazepam 1 MG TABLET PO SCH ×2 (08:38→21:24)
[2021-06-18] MEDS ORDERED: METOPROLOL TARTRATE 50 MG TABLET PO SCH (09:00)
[2021-06-18] MEDS ORDERED: FUROSEMIDE 20 MG/2 ML VIAL IV SCH (09:00)
[2021-06-18] MEDS: MENTHOL/ZINC OXIDE OINT 71 GM JAR TOP SCH ×2 (09:06→22:37)
[2021-06-18] MEDS: DIGOXIN 0.125 MG TABLET PO SCH (13:20)
[2021-06-18] MEDS: PROPRANOLOL 20 MG TABLET PO SCH ×2 (14:00→21:25)
[2021-06-18] MEDS: MONTELUKAST 10 MG TABLET PO SCH (21:25)
[2021-06-19] MEDS: INSULIN LISPRO 100 UNIT/ML SUBCUT SCH ×5 (00:25→16:43)
[2021-06-19] MEDS: ALBUTEROL/IPRATROPIUM 3 ML NEB RESP TX SCH ×4 (00:30→20:00)
[2021-06-19 03:56] LABS: Basophils % 0.4 % (0.0-0.8); Eosinophils # 0.1 10*3/uL (0.0-0.87); Hematocrit 32.5 VOL% (35.7-47.0); Immature Granulocytes % 3.5 %; Immature Granulocytes Absolute 0.18 #; Lymphocytes # 1.7 10*3/uL (1.4-4.0); Lymphocytes % 33.2 % (21.3-54.2); Mean Corpuscular HGB Conc 30.8 GM/DL (32-36); Mean Corpuscular Volume 92.1 FL (87-102); Mean Platelet Volume 9.6 FL (9.6-12.0); Monocytes % 9.4 % (1.7-12.7); Neutrophils % 52.5 % (38.7-73.9); Platelet Count 232 T/CUMM (130-400); Red Blood Count 3.53 MC/CUMM (3.8-5.5); White Blood Count 5.2 T/CUMM (4-12)
[2021-06-19 04:13] LABS: Calcium 9.6 MG/DL (8.5-10.1); Osmolality,Calculated 280.3 MOS/KG (273-304); Potassium 3.4 MMOL/L (3.5-5.1)
[2021-06-19 05:04] LABS: Lymphocytes 33 % (20-55); Metamyelocytes 4 %; Platelet Estimate Increased; Segmented Neutrophils 59 % (50-85); Total Cells Counted 100
[2021-06-19 05:05] LABS: Hypochromasia 2+
[2021-06-19] MEDS: QUEtiapine 25 MG TABLET PO SCH (09:50)
[2021-06-19] MEDS: POLYETHYLENE GLYCOL POWDER 17 GM PACK PO SCH (09:50)
[2021-06-19] MEDS: FAMOTIDINE 20 MG TABLET PO SCH (09:50)
[2021-06-19] MEDS: PROPRANOLOL 20 MG TABLET PO SCH (09:51)
[2021-06-19] MEDS: CHOLECALCIFEROL 1,000 UNIT TABLET PO SCH (09:51)
[2021-06-19] MEDS: ZINC GLUCONATE 50 MG TABLET PO SCH (09:51)
[2021-06-19] MEDS: predniSONE 20 MG TABLET PO SCH (09:52)
[2021-06-19] MEDS: ASCORBIC ACID 500 MG TABLET PO SCH (09:52)
[2021-06-19] MEDS: POTASSIUM BICARB EFFERVESCENT 20 MEQ TAB.EFF PER TUBE PRN ×2 (09:54→16:41)
[2021-06-19] MEDS: MENTHOL/ZINC OXIDE OINT 71 GM JAR TOP SCH (09:55)
[2021-06-19] MEDS: LORazepam 1 MG TABLET PO SCH (10:13)
[2021-06-19] MEDS: PARoxetine 20 MG TABLET PO SCH (10:13)
[2021-06-19] MEDS: INSULIN GLARGINE 100 UNIT/ML SUBCUT SCH (10:13)
[2021-06-19] MEDS: FONDAPARINUX 2.5 MG/0.5 ML SYRINGE SUBCUT SCH (10:14)
[2021-06-20] MEDS: LORazepam 1 MG TABLET PO SCH ×3 (00:31→22:55)
[2021-06-20] MEDS: ASCORBIC ACID 500 MG TABLET PO SCH ×3 (00:31→22:54)
[2021-06-20] MEDS: PROPRANOLOL 20 MG TABLET PO SCH ×3 (00:31→22:54)
[2021-06-20] MEDS: MONTELUKAST 10 MG TABLET PO SCH ×2 (00:31→22:56)
[2021-06-20] MEDS: FAMOTIDINE 20 MG TABLET PO SCH ×3 (00:31→22:54)
[2021-06-20] MEDS: QUEtiapine 25 MG TABLET PO SCH ×3 (00:31→22:54)
[2021-06-20] MEDS: INSULIN LISPRO 100 UNIT/ML SUBCUT SCH ×7 (00:32→23:00)
[2021-06-20] MEDS: MENTHOL/ZINC OXIDE OINT 71 GM JAR TOP SCH ×3 (00:33→23:01)
[2021-06-20] MEDS: ALBUTEROL/IPRATROPIUM 3 ML NEB RESP TX SCH ×4 (01:50→19:02)
[2021-06-20 07:52] LABS: Basophils % 0.3 % (0.0-0.8); Eosinophils # 0.1 10*3/uL (0.0-0.87); Eosinophils % 0.9 % (0.00-10.9); Hematocrit 33.9 VOL% (35.7-47.0); Hemoglobin 10.4 GM/DL (12.0-16.0); Immature Granulocytes % 2.8 %; Immature Granulocytes Absolute 0.16 #; Lymphocytes # 1.8 10*3/uL (1.4-4.0); Lymphocytes % 30.5 % (21.3-54.2); Mean Corpuscular HGB Conc 30.7 GM/DL (32-36); Mean Corpuscular Volume 90.6 FL (87-102); Mean Platelet Volume 9.6 FL (9.6-12.0); Monocytes % 10.5 % (1.7-12.7); Platelet Count 244 T/CUMM (130-400); Red Blood Count 3.74 MC/CUMM (3.8-5.5); Red Cell Distribution Width 16.7 % (9.3-17.3); White Blood Count 5.7 T/CUMM (4-12)
[2021-06-20 08:06] LABS: Calcium 9.2 MG/DL (8.5-10.1); Osmolality,Calculated 282.4 MOS/KG (273-304); Potassium 3.5 MMOL/L (3.5-5.1)
[2021-06-20] MEDS: POLYETHYLENE GLYCOL POWDER 17 GM PACK PO SCH (11:07)
[2021-06-20] MEDS: INSULIN GLARGINE 100 UNIT/ML SUBCUT SCH (11:08)
[2021-06-20] MEDS: FONDAPARINUX 2.5 MG/0.5 ML SYRINGE SUBCUT SCH (11:09)
[2021-06-20] MEDS: predniSONE 20 MG TABLET PO SCH (11:10)
[2021-06-20] MEDS: POTASSIUM CHLORIDE 20 MEQ TABLET PO PRN ×2 (11:11→13:23)
[2021-06-20] MEDS: CHOLECALCIFEROL 1,000 UNIT TABLET PO SCH (11:12)
[2021-06-20] MEDS: PARoxetine 20 MG TABLET PO SCH (11:12)
[2021-06-20] MEDS: ZINC GLUCONATE 50 MG TABLET PO SCH (11:13)
[2021-06-21] MEDS: ALBUTEROL/IPRATROPIUM 3 ML NEB RESP TX SCH ×4 (01:14→19:48)
[2021-06-21] MEDS: INSULIN LISPRO 100 UNIT/ML SUBCUT SCH ×6 (02:34→22:29)
[2021-06-21 05:22] LABS: Calcium 9.2 MG/DL (8.5-10.1); Osmolality,Calculated 283.4 MOS/KG (273-304); Potassium 3.9 MMOL/L (3.5-5.1)
[2021-06-21 06:12] LABS: Basophils % 0.5 % (0.0-0.8); Eosinophils # 0.1 10*3/uL (0.0-0.87); Eosinophils % 1.4 % (0.00-10.9); Hemoglobin 10.3 GM/DL (12.0-16.0); Immature Granulocytes % 2.4 %; Immature Granulocytes Absolute 0.14 #; Lymphocytes # 1.8 10*3/uL (1.4-4.0); Lymphocytes % 29.9 % (21.3-54.2); Mean Corpuscular HGB Conc 30.3 GM/DL (32-36); Mean Corpuscular Volume 90.7 FL (87-102); Mean Platelet Volume 9.8 FL (9.6-12.0); Monocytes % 10.4 % (1.7-12.7); Neutrophils % 55.4 % (38.7-73.9); Platelet Count 259 T/CUMM (130-400); Red Blood Count 3.75 MC/CUMM (3.8-5.5); Red Cell Distribution Width 16.5 % (9.3-17.3); White Blood Count 5.9 T/CUMM (4-12)
[2021-06-21 06:52] LABS: Eosinophils 1 % (0-10); Hypochromasia 1+; Lymphocytes 31 % (20-55); Microcytosis 1+; Platelet Estimate Adequate; Segmented Neutrophils 54 % (50-85); Total Cells Counted 100
[2021-06-21] MEDS: FONDAPARINUX 2.5 MG/0.5 ML SYRINGE SUBCUT SCH (09:03)
[2021-06-21] MEDS: INSULIN GLARGINE 100 UNIT/ML SUBCUT SCH (09:04)
[2021-06-21] MEDS: ASCORBIC ACID 500 MG TABLET PO SCH ×2 (09:06→22:29)
[2021-06-21] MEDS: MENTHOL/ZINC OXIDE OINT 71 GM JAR TOP SCH ×2 (09:06→22:30)
[2021-06-21] MEDS: FAMOTIDINE 20 MG TABLET PO SCH ×2 (09:06→22:30)
[2021-06-21] MEDS: PROPRANOLOL 20 MG TABLET PO SCH ×2 (09:07→22:29)
[2021-06-21] MEDS: QUEtiapine 25 MG TABLET PO SCH ×2 (09:07→22:29)
[2021-06-21] MEDS: ZINC GLUCONATE 50 MG TABLET PO SCH (09:07)
[2021-06-21] MEDS: PARoxetine 20 MG TABLET PO SCH (09:07)
[2021-06-21] MEDS: CHOLECALCIFEROL 1,000 UNIT TABLET PO SCH (09:07)
[2021-06-21] MEDS: predniSONE 20 MG TABLET PO SCH (09:08)
[2021-06-21] MEDS: POLYETHYLENE GLYCOL POWDER 17 GM PACK PO SCH (09:10)
[2021-06-21] MEDS: MONTELUKAST 10 MG TABLET PO SCH (22:29)
[2021-06-22] MEDS: ALBUTEROL/IPRATROPIUM 3 ML NEB RESP TX SCH ×4 (00:48→19:54)
[2021-06-22] MEDS: INSULIN LISPRO 100 UNIT/ML SUBCUT SCH ×7 (01:21→23:43)
[2021-06-22 06:45] LABS: Basophils % 0.1 % (0.0-0.8); Eosinophils % 0.6 % (0.00-10.9); Hematocrit 33.5 VOL% (35.7-47.0); Hemoglobin 10.3 GM/DL (12.0-16.0); Immature Granulocytes % 2.3 %; Immature Granulocytes Absolute 0.16 #; Lymphocytes # 2.1 10*3/uL (1.4-4.0); Lymphocytes % 29.3 % (21.3-54.2); Mean Corpuscular HGB Conc 30.7 GM/DL (32-36); Mean Corpuscular Volume 91.8 FL (87-102); Mean Platelet Volume 9.8 FL (9.6-12.0); Monocytes % 9.4 % (1.7-12.7); Neutrophils % 58.3 % (38.7-73.9); Platelet Count 248 T/CUMM (130-400); Red Blood Count 3.65 MC/CUMM (3.8-5.5); Red Cell Distribution Width 16.4 % (9.3-17.3); White Blood Count 7.1 T/CUMM (4-12)
[2021-06-22 07:11] LABS: Calcium 9.5 MG/DL (8.5-10.1); Osmolality,Calculated 279.4 MOS/KG (273-304); Potassium 3.8 MMOL/L (3.5-5.1)
[2021-06-22] MEDS: INSULIN GLARGINE 100 UNIT/ML SUBCUT SCH (09:03)
[2021-06-22] MEDS: PARoxetine 20 MG TABLET PO SCH (09:04)
[2021-06-22] MEDS: ASCORBIC ACID 500 MG TABLET PO SCH ×2 (09:04→22:00)
[2021-06-22] MEDS: PROPRANOLOL 20 MG TABLET PO SCH ×2 (09:04→22:00)
[2021-06-22] MEDS: predniSONE 20 MG TABLET PO SCH (09:04)
[2021-06-22] MEDS: ZINC GLUCONATE 50 MG TABLET PO SCH (09:04)
[2021-06-22] MEDS: FAMOTIDINE 20 MG TABLET PO SCH ×2 (09:04→22:00)
[2021-06-22] MEDS: CHOLECALCIFEROL 1,000 UNIT TABLET PO SCH (09:04)
[2021-06-22] MEDS: QUEtiapine 25 MG TABLET PO SCH ×2 (09:04→22:01)
[2021-06-22] MEDS: FONDAPARINUX 2.5 MG/0.5 ML SYRINGE SUBCUT SCH (09:04)
[2021-06-22] MEDS: MENTHOL/ZINC OXIDE OINT 71 GM JAR TOP SCH ×2 (09:05→22:04)
[2021-06-22] MEDS: POLYETHYLENE GLYCOL POWDER 17 GM PACK PO SCH (09:05)
[2021-06-22] MEDS: MONTELUKAST 10 MG TABLET PO SCH (22:01)
[2021-06-23] MEDS: ALBUTEROL/IPRATROPIUM 3 ML NEB RESP TX SCH ×4 (00:08→19:33)
[2021-06-23] MEDS: INSULIN LISPRO 100 UNIT/ML SUBCUT SCH ×5 (04:36→21:35)
[2021-06-23 05:07] LABS: Basophils % 0.4 % (0.0-0.8); Eosinophils # 0.1 10*3/uL (0.0-0.87); Eosinophils % 0.7 % (0.00-10.9); Hematocrit 31.9 VOL% (35.7-47.0); Immature Granulocytes % 2.3 %; Immature Granulocytes Absolute 0.16 #; Lymphocytes % 29.7 % (21.3-54.2); Mean Corpuscular HGB Conc 31.3 GM/DL (32-36); Mean Corpuscular Volume 91.1 FL (87-102); Mean Platelet Volume 9.5 FL (9.6-12.0); Monocytes % 9.3 % (1.7-12.7); Neutrophils % 57.6 % (38.7-73.9); Platelet Count 213 T/CUMM (130-400); Red Cell Distribution Width 16.4 % (9.3-17.3); White Blood Count 6.9 T/CUMM (4-12)
[2021-06-23 05:32] LABS: Calcium 9.5 MG/DL (8.5-10.1); Osmolality,Calculated 281.4 MOS/KG (273-304); Potassium 3.9 MMOL/L (3.5-5.1)
[2021-06-23 08:45] LABS: % Iron Saturation 39.7 % (18-50)
[2021-06-23] MEDS: QUEtiapine 25 MG TABLET PO SCH ×2 (08:47→21:35)
[2021-06-23] MEDS: predniSONE 20 MG TABLET PO SCH (08:47)
[2021-06-23] MEDS: PROPRANOLOL 20 MG TABLET PO SCH ×2 (08:47→21:34)
[2021-06-23] MEDS: ZINC GLUCONATE 50 MG TABLET PO SCH (08:47)
[2021-06-23] MEDS: DOCUSATE SODIUM 100 MG CAPSULE PO PRN (08:47)
[2021-06-23] MEDS: INSULIN GLARGINE 100 UNIT/ML SUBCUT SCH (08:48)
[2021-06-23] MEDS: CHOLECALCIFEROL 1,000 UNIT TABLET PO SCH (08:48)
[2021-06-23] MEDS: ASCORBIC ACID 500 MG TABLET PO SCH ×2 (08:48→21:34)
[2021-06-23] MEDS: FAMOTIDINE 20 MG TABLET PO SCH ×2 (08:48→21:34)
[2021-06-23] MEDS: PARoxetine 20 MG TABLET PO SCH (08:48)
[2021-06-23] MEDS: POLYETHYLENE GLYCOL POWDER 17 GM PACK PO SCH (08:49)
[2021-06-23] MEDS: MENTHOL/ZINC OXIDE OINT 71 GM JAR TOP SCH ×2 (08:49→21:36)
[2021-06-23 08:55] LABS: Folate 12.19 NG/ML (5.38-24.0)
[2021-06-23] MEDS: FONDAPARINUX 2.5 MG/0.5 ML SYRINGE SUBCUT SCH (10:45)
[2021-06-23] MEDS: LORazepam 2 MG/1 ML VIAL IV PRN (11:02)
[2021-06-23] MEDS: METOPROLOL TARTRATE 5 MG/5 ML VIAL IV PRN (12:05)
[2021-06-23] MEDS: MONTELUKAST 10 MG TABLET PO SCH (21:35)
[2021-06-24] MEDS: INSULIN LISPRO 100 UNIT/ML SUBCUT SCH ×6 (00:01→22:20)
[2021-06-24] MEDS: ALBUTEROL/IPRATROPIUM 3 ML NEB RESP TX SCH ×4 (01:22→18:49)
[2021-06-24 05:53] LABS: Basophils % 0.3 % (0.0-0.8); Eosinophils % 0.5 % (0.00-10.9); Hematocrit 32.7 VOL% (35.7-47.0); Immature Granulocytes Absolute 0.15 #; Lymphocytes # 2.2 10*3/uL (1.4-4.0); Lymphocytes % 29.9 % (21.3-54.2); Mean Corpuscular HGB Conc 30.6 GM/DL (32-36); Mean Corpuscular Volume 92.4 FL (87-102); Mean Platelet Volume 9.6 FL (9.6-12.0); Monocytes % 10.6 % (1.7-12.7); Neutrophils % 56.7 % (38.7-73.9); Platelet Count 210 T/CUMM (130-400); Red Blood Count 3.54 MC/CUMM (3.8-5.5); Red Cell Distribution Width 16.2 % (9.3-17.3); White Blood Count 7.4 T/CUMM (4-12)
[2021-06-24 06:09] LABS: Calcium 9.5 MG/DL (8.5-10.1); Osmolality,Calculated 278.4 MOS/KG (273-304); Potassium 3.5 MMOL/L (3.5-5.1)
[2021-06-24] MEDS: INSULIN GLARGINE 100 UNIT/ML SUBCUT SCH (09:45)
[2021-06-24] MEDS: FONDAPARINUX 2.5 MG/0.5 ML SYRINGE SUBCUT SCH (09:46)
[2021-06-24] MEDS: PARoxetine 20 MG TABLET PO SCH (09:47)
[2021-06-24] MEDS: ZINC GLUCONATE 50 MG TABLET PO SCH (09:48)
[2021-06-24] MEDS: CHOLECALCIFEROL 1,000 UNIT TABLET PO SCH (09:48)
[2021-06-24] MEDS: predniSONE 20 MG TABLET PO SCH (09:49)
[2021-06-24] MEDS: PROPRANOLOL 20 MG TABLET PO SCH ×2 (09:49→22:08)
[2021-06-24] MEDS: FAMOTIDINE 20 MG TABLET PO SCH ×2 (09:50→22:08)
[2021-06-24] MEDS: QUEtiapine 25 MG TABLET PO SCH ×2 (09:50→22:09)
[2021-06-24] MEDS: POTASSIUM CHLORIDE 20 MEQ TABLET PO PRN ×2 (09:51→14:05)
[2021-06-24] MEDS: POLYETHYLENE GLYCOL POWDER 17 GM PACK PO SCH (09:51)
[2021-06-24] MEDS: MENTHOL/ZINC OXIDE OINT 71 GM JAR TOP SCH ×2 (09:52→22:12)
[2021-06-24] MEDS: ASCORBIC ACID 500 MG TABLET PO SCH ×2 (09:52→22:09)
[2021-06-24] MEDS: MONTELUKAST 10 MG TABLET PO SCH (22:09)
[2021-06-25] MEDS: INSULIN LISPRO 100 UNIT/ML SUBCUT SCH ×6 (00:59→21:03)
[2021-06-25] MEDS: ALBUTEROL/IPRATROPIUM 3 ML NEB RESP TX SCH ×4 (01:30→18:42)
[2021-06-25 05:36] LABS: Basophils % 0.3 % (0.0-0.8); Eosinophils % 0.4 % (0.00-10.9); Hematocrit 33.3 VOL% (35.7-47.0); Hemoglobin 10.2 GM/DL (12.0-16.0); Immature Granulocytes Absolute 0.18 #; Lymphocytes # 2.3 10*3/uL (1.4-4.0); Lymphocytes % 25.2 % (21.3-54.2); Mean Corpuscular HGB Conc 30.6 GM/DL (32-36); Mean Corpuscular Volume 91.2 FL (87-102); Mean Platelet Volume 9.9 FL (9.6-12.0); Monocytes % 8.4 % (1.7-12.7); Neutrophils % 63.7 % (38.7-73.9); Platelet Count 211 T/CUMM (130-400); Red Blood Count 3.65 MC/CUMM (3.8-5.5); Red Cell Distribution Width 16.4 % (9.3-17.3)
[2021-06-25 05:59] LABS: Calcium 9.7 MG/DL (8.5-10.1); Osmolality,Calculated 275.5 MOS/KG (273-304); Potassium 3.8 MMOL/L (3.5-5.1)
[2021-06-25] MEDS: INSULIN GLARGINE 100 UNIT/ML SUBCUT SCH (10:38)
[2021-06-25] MEDS: FONDAPARINUX 2.5 MG/0.5 ML SYRINGE SUBCUT SCH (10:38)
[2021-06-25] MEDS: POLYETHYLENE GLYCOL POWDER 17 GM PACK PO SCH (10:41)
[2021-06-25] MEDS: ZINC GLUCONATE 50 MG TABLET PO SCH (10:42)
[2021-06-25] MEDS: CHOLECALCIFEROL 1,000 UNIT TABLET PO SCH (10:42)
[2021-06-25] MEDS: POTASSIUM CHLORIDE 20 MEQ TABLET PO PRN (10:42)
[2021-06-25] MEDS: predniSONE 20 MG TABLET PO SCH (10:43)
[2021-06-25] MEDS: PROPRANOLOL 20 MG TABLET PO SCH ×2 (10:43→21:02)
[2021-06-25] MEDS: FAMOTIDINE 20 MG TABLET PO SCH ×2 (10:43→21:03)
[2021-06-25] MEDS: MENTHOL/ZINC OXIDE OINT 71 GM JAR TOP SCH ×2 (10:43→21:02)
[2021-06-25] MEDS: ASCORBIC ACID 500 MG TABLET PO SCH ×2 (10:43→21:02)
[2021-06-25] MEDS: PARoxetine 20 MG TABLET PO SCH (10:43)
[2021-06-25] MEDS: QUEtiapine 25 MG TABLET PO SCH ×2 (10:43→21:02)
[2021-06-25] MEDS: MONTELUKAST 10 MG TABLET PO SCH (21:02)
[2021-06-26] MEDS: INSULIN LISPRO 100 UNIT/ML SUBCUT SCH ×4 (00:52→12:00)
[2021-06-26] MEDS: ALBUTEROL/IPRATROPIUM 3 ML NEB RESP TX SCH ×3 (01:06→13:02)
[2021-06-26 05:43] LABS: Basophils % 0.4 % (0.0-0.8); Eosinophils % 0.5 % (0.00-10.9); Hematocrit 32.2 VOL% (35.7-47.0); Hemoglobin 9.9 GM/DL (12.0-16.0); Immature Granulocytes % 1.6 %; Immature Granulocytes Absolute 0.12 #; Lymphocytes % 27.2 % (21.3-54.2); Mean Corpuscular HGB Conc 30.7 GM/DL (32-36); Mean Corpuscular Volume 92.5 FL (87-102); Monocytes % 7.5 % (1.7-12.7); Neutrophils % 62.8 % (38.7-73.9); Platelet Count 174 T/CUMM (130-400); Red Blood Count 3.48 MC/CUMM (3.8-5.5); Red Cell Distribution Width 16.4 % (9.3-17.3); White Blood Count 7.4 T/CUMM (4-12)
[2021-06-26 06:16] LABS: Calcium 9.2 MG/DL (8.5-10.1); Osmolality,Calculated 279.3 MOS/KG (273-304); Potassium 3.7 MMOL/L (3.5-5.1)
[2021-06-26] MEDS ORDERED: INSULIN GLARGINE 100 UNIT/ML SUBCUT SCH (09:00)
[2021-06-26] MEDS: MENTHOL/ZINC OXIDE OINT 71 GM JAR TOP SCH (10:04)
[2021-06-26] MEDS: PROPRANOLOL 20 MG TABLET PO SCH (10:04)
[2021-06-26] MEDS: predniSONE 20 MG TABLET PO SCH (10:04)
[2021-06-26] MEDS: PARoxetine 20 MG TABLET PO SCH (10:04)
[2021-06-26] MEDS: ZINC GLUCONATE 50 MG TABLET PO SCH (10:04)
[2021-06-26] MEDS: POLYETHYLENE GLYCOL POWDER 17 GM PACK PO SCH (10:04)
[2021-06-26] MEDS: FONDAPARINUX 2.5 MG/0.5 ML SYRINGE SUBCUT SCH (10:04)
[2021-06-26] MEDS: CHOLECALCIFEROL 1,000 UNIT TABLET PO SCH (10:04)
[2021-06-26] MEDS: FAMOTIDINE 20 MG TABLET PO SCH (10:04)
[2021-06-26] MEDS: QUEtiapine 25 MG TABLET PO SCH (10:04)
[2021-06-26] MEDS: ASCORBIC ACID 500 MG TABLET PO SCH (10:04)
[2021-06-26 12:38] VITALS: BP 137/76
[2021-06-27] MEDS ORDERED: OXYBUTYNIN 5 MG TABLET PO SCH (09:00)
== END 2021-06-26 15:34 | DRG 4 ==
LOC: N.ED 06:20 → N.EDINP 10:39 → SUATTDRO 10:39 → N.2E 12:45 → N.ICU 05-15 13:39 → N.TELES 06-18 16:42
PROVIDERS: ADMIT Internal Medicine; ATTEND Internal Medicine